=== PATIENT | male | born 1940 | race Caucasian/White ===

== ENCOUNTER 2016-11-29 12:46 | Inpatient (IN) | payer MEDICARE ==
[~2016-11-29] VITALS: Ht 182.9 cm; Wt 86.2 kg
--- NOTE | ~2016-11-29 | HEMODYNAMI ---
PATIENT:ZAN FRENCH MEDICAL RECORD: [id number] : 38 LOCATION:D.MS Lal7 ADMISSION DATE: 11/29/16 Generatedon:12/04/201613:06 Patient name: ZAN FRENCH Patient #: [id number] SSN: D OB: 1940 Date of study: 12/04/2016 Page: Of Hemodynamic Procedure Report Patient Data Patient Demographics Procedure consent was obtained First Name: ZAN Gender: Male Last Name: MANOLO : 1940 [facility] Initial: KASSANDRA Age: 76 year(s) Patient #: [id number] Race: Unknown Additional ID: [id number] Contact details [address]: [address] [place] [address] [place] State: [place] City: [place] Zip code: [address] Past Medical History Allergies Allergen Reaction Date Comments Reported Penicillins 09/12/2016 Admission Admission Data Admission Date: 11/29/2016 Admission Time: 12:46 Room #: D.2207 Weight (lbs.): 189 Weight (kg.): 85.73 Procedure Procedure Types Cath Procedure Peripheral Cath Diagnostic Procedure Cath Peripheral Abd/Extremity Extremities Bilat Lower Extremity Procedure Description Procedure Date Procedure Date: 12/04/2016 Procedure Start Time: 11:11 Procedure Staff Name Function Becky Suresh RT Resource Specialist Becky Suresh RT Monitor Margo Wilson RT Scrub Margo Medina RN Nurse Beto Keller MD Performing Physician Procedure Data Cath Procedure Fluoroscopy Diagnostic fluoroscopy Total fluoroscopy Time: 12 time: 12 min min Diagnostic fluoroscopy Total fluoroscopy dose: dose: 379.87 mGy 379.87 mGy Contrast Material Contrast Material Type Amount (ml) Isovue 300 118 Entry Location Entry Primary Successful Side Size Upsize Upsize Entry Closure Succes sful Closure Location (Fr) 1 (Fr) 2 (Fr) Remarks Device Remarks Femoral Right 5 Fr artery Femoral artery Diagnostic catheters Device Type Used For End Catheter Placement Merit ULTRA BOLUS FLUSH 5Fr 65CM catheter Merit Impress Olsen 5Fr 125CM catheter Procedure Medications Medication Administration Route Dosage Benadryl I.V. 50 mg Versed I.V. 1 mg Fentanyl I.V. 50 mcg Heparin Bolus I.V. 5000 units Versed I.V. 0.5 mg Hemodynamics Rest Heart Rate: 62 (bpm) Snapshots Pre Cath Intra NCS Post Cath Vital Signs Time Heart Resp SPO2 NIBP (mmHg) Rhythm Pain Sedation Rate (ipm) (%) Status Level (bpm) 10:53:09 73 23 99 162/96(145) NSR 0 (11) 10(A) , No pain 10:57:27 71 17 100 172/101(136) NSR 0 (11) 10(A) , No pain 11:01:48 69 18 99 174/105(151) NSR 0 (11) 10(A) , No pain 11:06:08 69 18 98 165/98(135) NSR 0 (11) 10(A) , No pain 11:10:28 70 18 98 170/100(145) NSR 0 (11) 10(A) , No pain 11:14:48 69 17 100 171/98(131) NSR 0 (11) 9(A) , No pain 11:19:10 69 16 100 168/110(139) NSR 0 (11) 9(A) , No pain 11:23:34 73 18 100 166/90(130) NSR 0 (11) 9(A) , No pain 11:27:52 70 20 100 169/98(145) NSR 0 (11) 9(A) , No pain 11:32:15 69 20 100 168/98(136) NSR 0 (11) 9(A) , No pain 11:36:37 69 19 100 169/95(131) NSR 0 (11) 9(A) , No pain 11:41:09 62 17 100 158/80(139) NSR 0 (11) 9(A) , No pain 11:45:28 71 20 100 173/99(138) NSR 0 (11) 9(A) , No pain 11:49:54 69 16 100 173/96(135) NSR 0 (11) 9(A) , No pain 11:54:18 70 18 99 171/105(141) NSR 0 (11) 9(A) , No pain 11:58:42 69 16 100 171/100(144) NSR 0 (11) 9(A) , No pain 12:02:54 70 16 100 161/103(147) NSR 0 (11) 9(A) , No pain 12:07:14 70 17 100 169/101(139) NSR 0 (11) 9(A) , No pain 12:11:38 74 16 100 179/105(144) NSR 0 (11) 9(A) , No pain 12:16:05 69 16 100 178/106(148) NSR 0 (11) 9(A) , No pain 12:21:16 69 17 100 165/100(143) NSR 0 (11) 9(A) , No pain 12:25:38 69 16 100 177/104(146) NSR 0 (11) 9(A) , No pain 12:30:06 70 18 100 180/101(144) NSR 0 (11) 9(A) , No pain 12:34:39 69 19 100 178/86(142) NSR 0 (11) 9(A) , No pain 12:39:07 69 16 100 185/107(151) NSR 0 (11) 9(A) , No pain 12:43:30 71 21 100 174/111(144) NSR 0 (11) 9(A) , No pain 12:47:58 69 16 100 178/107(133) NSR 0 (11) 9(A) , No pain 12:52:26 69 17 100 171/108(144) NSR 0 (11) 9(A) , No pain 12:57:25 69 18 Measuring NSR 0 (11) 9(A) , No pain 12:57:31 69 19 174/107(149) NSR 0 (11) 9(A) , No pain 13:01:53 71 18 170/91(134) NSR 0 (11) 9(A) , No pain Medications Time Medication Route Dose Verified Delivered Reason Notes Effective ness by by 11:00:05 Benadryl I.V. 50 mg Margo Margo Per Adam Adam physician RN RN 11:10:58 Versed I.V. 1 mg Margo Margo for Adam Adam sedation RN RN 11:11:04 Fentanyl I.V. 50 Margo Margo for mcg Adam Adam sedation RN RN 11:54:17 Heparin I.V. 5000 Margo Margo Per Bolus units [facility] Health[facility] physician RN RN 12:15:57 Versed I.V. 0.5 Margo Margo for mg Adam Adam sedation RN supervisor last model department Log Time Note 9:49:46 Patient Weight : 189 kg 9:51:51 Cook BENTSON 145cm guide wire opened to sterile field. 9:51:52 St Horacio 5FR Sheath opened to sterile field. 9:51:53 Micropuncture VSI 4FR kit opened to sterile field. 9:51:59 Use device set IR Diagnostic 9:52:01 Sterile Angiographic Pack opened to sterile field. 9:52:02 Bag Decanter opened to sterile field. 9:52:03 Acist Manifold opened to sterile field. 9:52:04 Acist Hand Control opened to sterile field. 9:52:05 Acist Syringe opened to sterile field. 9:56:07 TUBING, CONTRAST INJCTN HI PRES opened to sterile field. 9:56:21 Encore Inflation Device opened to sterile field. 9:56:36 - 10:52:35 Time tracking: Regular hours 10:52:41 Plan of Care:Hemodynamics will remain stable., Cardiac rhythm will remain stable., Comfort level will be maintained., Respiratory function will remain adequate., Patient/ family verbilizes understanding of procedure., Procedure tolerated without complication., Recovers from procedure without complications.. 10:52:51 Patient received from Med/Surg to IR Alert and oriented. Tansferred to table in Supine position. 10:52:53 Warm blankets applied, and loni hugger turned on for patient comfort. 10:52:55 Correct patient and procedure confirmed by team. 10:52:57 Signed procedure consent form obtained from patient. 10:53:00 ECG and BP/O2 sat monitors applied to patient. 10:53:02 Vital chart was started 10:53:06 Baseline sample Acquired. 10:53:18 Rhythm: paced 10:53:22 Full Disclosure recording started 10:53:29 Pre-procedure instructions explained to patient. 10:53:42 Family in waiting room. 10:53:48 Patient NPO since Midnight. 10:53:52 Is the patient allergic to Iodine/contrast media? No. 10:54:16 Is patient on blood thinner?Yes 10:54:33 ACC The patient was administered the following blood thiners within the last 24 hours: ACCPlavix, ACCLovenox 10:54:36 Patient diabetic? Yes. 10:54:54 Previous problem with sedation/anesthesia? No ? 10:54:56 Snore? Yes 10:54:58 Sleep apnea? Yes 10:55:00 Deviated septum? No 10:55:08 Opens mouth fully? Yes 10:55:10 Sticks out tongue? Yes 10:55:14 Airway obstruction? No ? 10:55:22 Dentures? No ? 10:55:25 Dentures? Yes ? 10:55:40 Pre procedure: right dorsailis pedis pulse Doppler 10:55:44 Pre procedure: left dorsailis pedis pulse Doppler 10:55:48 Pre procedure: right posterior tibial pulse Doppler 10:55:53 Pre procedure: left posterior tibial pulse Doppler 10:56:02 IV patent on arrival in right forearm with 0.9% NaCl at [facility]. 10:56:14 Right groin area was prepped with chlora-prep and draped in sterile fashion 10:56:26 Lab results completed and on chart. 10:56:31 Alarms reviewed by R. N. 10:56:33 Sharps counted by scrub and verified by R.N. 11:00:05 Benadryl 50 mg I.V. was given by Margo Medina RN; Per physician; 11:06:00 A Merit ULTRA BOLUS FLUSH 5Fr 65CM catheter was advanced over the wire and used for . 11:07:14 Physician arrived 11:09:40 Final Timeout: patient, procedure, and site verified with staff and physician. All members of the team are in agreement. 11:09:40 --------ALL STOP TIME OUT------ 11:09:47 Physical assessment completed. ASA score P 3 - A patient with severe systemic disease as per Beto Keller MD. 11:09:53 Sedation plan: IV Moderate Sedation Versed, Fentanyl 11:10:04 Procedure started. 11:10:58 Versed 1 mg I.V. was given by Margo Medina RN; for sedation; 11:11:04 Fentanyl 50 mcg I.V. was given by Margo Medina RN; for sedation; 11:11:32 Local anesthetic to right femoral artery with Lidocaine 1% by Beto Keller MD.INITIAL ACCESS ONLY 11:11:35 Arterial access obtained using ultrasound guidance. 11:11:51 A 5 Fr sheath was inserted into the Right Femoral artery 11:21:27 [place] Saberr Amplatz Super Stiff 75CM guide wire opened to sterile field. 11:21:28 Terumo TORQUE DEVICE PLASTIC .038 opened to sterile field. 11:21:49 Terumo ANGLE 180L glide wire opened to sterile field. 11:21:50 Terumo 5FR ANGLED 65CM glide catheter opened to sterile field. 11:42:52 Terumo 6Fr [place] Destination Sheath opened to sterile field. 11:43:10 Terumo ANGLE 260L glide wire opened to sterile field. 11:43:11 Cook MORAES 260 guide wire opened to sterile field. 11:43:12 Terumo 5FR ANGLED 100CM glide catheter opened to sterile field. 11:48:26 CXI SUPPORT .035 135 CM STR catheter opened to sterile field. 11:54:17 Heparin Bolus 5000 units I.V. was given by Margo Medina RN; Per physician; 11:55:01 CSI [place] Floppy 300cm opened to sterile field. 12:00:49 Inflation number: 1 A Saber 3.0 X 4 X 150 balloon was prepped and advanced across the Undefined1, then inflated to 14 SHEKHAR for 0:10 (min:sec). 12:10:36 A Lalitha Escamilla Olsen 5Fr 125CM catheter was advanced over the wire and used for . 12:15:57 Versed 0.5 mg I.V. was given by Margo Medina RN; for sedation; 12:30:12 Inflation number: 2 A IN.PACT Admiral 4.0 x 60 x 135 DCB Balloon was prepped and advanced across the Undefined1, then inflated to 5 SHEKHAR for 2:46 (min:sec). 12:37:40 St Horacio 6Fr sheath opened to sterile field. 12:40:27 A sheath was inserted into the Femoral artery 12:41:12 Procedure ended.(Physican Out) 12:41:17 Fluoroscopy time 12.00 minutes. 12:41:31 Fluoroscopy dose: 379.87 mGy 12:41:31 Flurop Dose total: 379.87 12:41:39 Contrast amount:Isovue 300 118ml. 12:41:41 Sharps counted by scrub and verified by R.N. 13:01:03 Femstop placed over the right femoral artery at 1300 mmHg. Hemostasis achieved. 13:02:14 Procedure and supply charges have been captured, reviewed, submitted an d are correct. 13:02:57 Vital chart was stopped 13:03:01 Full Disclosure recording stopped Intervention Summary Intervention Notes Time ActionType Lesion and Equipment Action# Pressure Duration Attributes Used 12:00:49 Inflate Undefined1 Saber 3.0 1 14 00:10 balloon X 4 X 150 balloon 12:30:12 Inflate Undefined1 IN.PACT 2 5 02:46 balloon Admiral 4.0 x 80 x 135 DCB Balloon Device Usage Item Name Manufacture Quantity Catalog Number Hospital Part Current M inimal Lot# / Charge Number Stock Stock Serial# Code [facility] 1 [id number] [id number] [id number] wire [address] Horacio [address]FR St Horacio 1 [id number] 424369 660273 5 [id number] Sheath Micropuncture VSI VASCULAR 1 [id number] 085194 366526 5 VSI 4FR kit SOLUTIONS Sterile Cardinal 1 [id number] 941317 497037 5 Angiographic Health Pack Bag Decanter Microtek 1 2001S 383696 58322 502772 5 Medical Inc. Acist Acist Medical 1 69643 442183 212057 026499 5 Manifold Systems Inc Acist Hand Acist Medical 1 65067 665809 883737 818539 5 Control Systems Inc Acist Syringe Acist Medical 1 41827 916480 730666 499631 2 0 Systems Inc TUBING, Aurality 1 [id number] 666113 856877 378309 5 CONTRAST INJCTN HI PRES Encore [place] 1 [id number] 449446 111027 755699 5 Inflation Scientific Device SquareMarket ULTRA [facility] 1 [id number] 411054 049009 5 BOLUS FLUSH 5Fr 65CM catheter [place] Sci [place] 1 [id number] 113461 350481 034812 5 Amplatz Super Scientific Stiff 75CM guide wire Terumo TORQUE [place] 1 TD01 668617 112165 984172 5 DEVICE Scientific PLASTIC .038 Terumo ANGLE Terumo 1 [id number] 289478 620413 5 180L glide wire Terumo 5FR Terumo 1 CG507 228320 612890 5 ANGLED 65CM glide catheter Terumo 6Fr Terumo 1 RSR01 291953 49646 295164 5 [place] Destination Sheath Terumo ANGLE Terumo 1 [id number] 124886 213995 5 260L glide wire [facility] 1 X86739 701020 814216 5 8376037 260 guide wire Terumo 5FR Terumo 1 CG508 555188 776654 4 ANGLED 100CM glide catheter CXI SUPPORT [facility] 1 U61270 637700 441447 5 .035 135 CM STR catheter CSI [place] Cardiovascular 1 [id number] 616786 774673 1 Floppy 300cm systems Saber 3.0 X 4 Cardinal 1 [id number] 584614 036958 5 X 150 balloon Health Merit [facility] 1 [id number] 997142 468345 831835 5 Olsen 5Fr 125CM catheter IN.PACT Medtronic 1 [id number] 470590 559617 526085 5 Admiral 4.0 x 80 x [address] Horacio [address] St Horacio 1 573105 639739 065917 5 [id number] sheath Signature Audit Liguori Stage Time Signature Unsigned Intra-Procedure 12/04/2016 Becky Suresh 1:02:44 PM RT(R) Signatures Monitor : Becky Suresh RT Signature : Date : Time : [facility] [address] [facility] [place] [address]
[~2016-11-29 12:46] MED LIST: ALDACTONE25 MG PO; BAYER CHEWABLE81 MG PO; CLARITIN 10 MG10 MG PO; CLEOCIN HCL300 MG PO; COREG25 MG PO; COUMADIN5 MG PO; FLAGYL500 MG PO; FLOMAX0.4 MG PO; HUMALOG 30100 UNITS/ SC; HYDROCODON-ACE1 EAC7 PO; ISOSORBIDE MONO30 M1 PO; LASIX40 MG PO; LASIX80 MG PO; LEVAQUIN250 MG PO; LEVAQUIN500 MG PO; LEVEMIR100 U/M1 SC; LIPITOR20 MG PO; LIPITOR40 MG PO; LYRICA75 MG PO; MIDODRINE HCL2.5 MG PO; MUCOMYST 2800 MG/4 M PO; NOVOLOG MIX 70/10 ML; NOVOLOG100 U/M1 SQ; PLAVIX75 MG PO; RANEXA500 MG PO; VANCOMYCIN 1 GM/1 G1 IV; ZETIA10 MG PO; Zaroxolyn PO
--- NOTE | 2016-11-29 13:44 | NUR ---
RECIEVED TO ROOM [address] PAINTING OFFICE PT AWAKE AND ALERT ORINETED X 3 LUNGS CLEAR BIALTERALLY HAS NOTED GANGRENE TO LEFT FOOT UNDER 4TH TOENAIL AND SPOTS TO 3RD TOE COMPLAINS OF PAIN TO LLE NOTED TO HAVE AN ODOR ORINETED TO ROOM AND STAFF CALL LIGHT IN REACH SIDE RAILS UP X 2 AND BEED TO LOW POSITION.
[2016-11-29] MEDS ORDERED: LIPITOR40 MG PO (14:05)
[2016-11-29] MEDS ORDERED: LIPITOR80 MG PO (14:06)
[2016-11-29 14:09] VITALS: BP 185/87
[2016-11-29] MEDS ORDERED: NOVOLOG100 U/M1 SQ (14:19)
[2016-11-29 14:36] LABS: BASOPHILS 0.3 % (0.0-2.0); EOSINOPHILS 0.4 % (0-7); HEMATOCRIT 41.8 % (42.0-54.0); HEMOGLOBIN 12.9 g/dL (13.5-17.5); IMMATURE GRANULOCYTES 0.3 % (0-5); LYMPHOCYTES 14.5 % (15-50); MCH 25.6 pg (26.0-34.0); MCHC 30.9 g/dL (31.0-37.0); MCV 83.1 fL (80.0-100.0); MEAN PLATELET VOLUME 11.9 fL (7.4-10.4); MONOCYTES 7.6 % (2-11); NEUTROPHILS 76.9 % (40-80); RBC 5.03 10x6/uL (4.20-6.10); WBC 7.8 10x3/uL (4.8-10.8)
[2016-11-29 14:38] LABS: PLATELET COUNT 155 10x3/uL (130-400)
[2016-11-29 14:45] LABS: APTT 29.5 SECONDS (22.8-39.4); INR 1.28 (0.85-1.17); PROTIME 15.8 SECONDS (11.6-15.0)
[2016-11-29 14:49] LABS: ALBUMIN 2.7 g/dL (3.4-5.0); ANION GAP 11.6 mmol/L (8-16); BILIRUBIN - TOTAL 0.67 mg/dL (0.2-1.3); CALCIUM 8.8 mg/dL (8.5-10.1); CARBON DIOXIDE 29.9 mmol/L (21.0-32.0); CREATININE - SERUM 1.5 mg/dL (0.6-1.3); POTASSIUM - SERUM 4.5 mmol/L (3.5-5.1); PROTEIN - SERUM 7.2 g/dL (6.4-8.2)
[2016-11-29 15:35] VITALS: BP 178/101
--- NOTE | 2016-11-29 16:11 | NUR ---
Patient Name: ZAN FRENCH Admission Status: Elective Accout number: [id number] Admission Date: 11-29-2016 : 1940 Admission Diagnosis: Attending: ALIDA Current LOS: 1 Anticipated DC Date: 12-02-2016 Planned Disposition: Home Primary Insurance: [employer] MEDICARE PPO or HMO Discharge Planning Comments: CM MET WITH PATIENT REGARDING D/C NEEDS AND PLANS. PATIENT STATED HE LIVES WITH HIS (ARVIN) AND GRANDCHILDREN. THERE ARE 3 STEPS W/RAILS TO ENTER HOME AND NO STAIRS ONCE INSIDE. PATIENTS WILL PICK HIM UP AT DISCHARGE. PATIENT STATED HE IS INDEPENDENT WITH HIS CARE AND HAS ONLY A WALKER AND CANE AT HOME IF NEEDED. PATIENTS PCP IS DR. RENO IN [place] AND [facility] [place]. PATIENT STATED HE DOES NOT THINK HE WILL NEED HH AT DISCHARGE. CM WILL CONTINUE TO FOLLOW PATIENT WITH D/C NEEDS AND PLANS. PCP DR. RENO IN [facility] IN [place]- [phone] ARVIN () [phone] Motorman/Woman: Tea Cummings Is the patient Alert and Oriented? Yes 0 * How many steps to enter\exit or inside your home? 3 W/RAILS 0 * PCP IN [place] 0 * Pharmacy [facility] IN [place] 0 * Preadmission Environment Home with Family 0 * ADLs Independent 0 * Equipment Cane Walker 0 * List name and contact numbers for known caregivers / representatives who currently or will assist patient after discharge: ARVIN (SPOUSE) [phone] 0 * Community resources currently utilized None 0 * Additional services required to return to the preadmission environment? Yes 0 * Can the patient safely return to the preadmission environment? Yes 0 * Has this patient been hospitalized within the prior 30 days at any hospital? No 0 Grand Total: 0
[2016-11-29 17:10] VITALS: BP 185/87; BMI 25.8
--- NOTE | 2016-11-29 17:17 | NUR ---
PT LYING IN BED WATCHING TV NO COMPLAINTS VOICED ALL NEEDS MET PER STAFF AT THIS TIME AWAITING SUPPER MEAL.
[2016-11-29 19:00] VITALS: BP 167/92
--- NOTE | 2016-11-29 19:00 | NUR ---
PATIENT SLEEPING ON LEFT SIDE WITH NO DISTRESS NOTED. HOB 20 DEGREES. RR EVEN AND UNLABORED. IV TO RIGHT FA PATENT WITH NO REDNESS OR SWELLING. SRX2. BED LOW. CALL LIGHT WITHIN REACH.
--- NOTE | 2016-11-29 22:00 | NUR ---
ASSESSMENT COMPLETE. NIGHTTIME MEDS GIVEN. 6 UNITS HUMULIN GIVEN FOR BS OF 264. NO OTHER NEEDS AT THIS TIME.
[2016-11-30] VITALS: BP 143/83
[2016-11-30 04:00] VITALS: BP 115/80
[2016-11-30 05:21] LABS: BASOPHILS 0.3 % (0.0-2.0); HEMOGLOBIN 11.6 g/dL (13.5-17.5); IMMATURE GRANULOCYTES 0.1 % (0-5); LYMPHOCYTES 21.4 % (15-50); MCH 25.1 pg (26.0-34.0); MCHC 30.5 g/dL (31.0-37.0); MCV 82.3 fL (80.0-100.0); MONOCYTES 7.4 % (2-11); NEUTROPHILS 69.8 % (40-80); PLATELET COUNT 149 10x3/uL (130-400); RBC 4.62 10x6/uL (4.20-6.10); RDW 16.8 % (11.5-14.5); WBC 6.9 10x3/uL (4.8-10.8)
[2016-11-30 05:51] LABS: BILIRUBIN - TOTAL 0.8 mg/dL (0.2-1.3); CALCIUM 7.7 mg/dL (8.5-10.1); CARBON DIOXIDE 30.2 mmol/L (21.0-32.0); CREATININE - SERUM 1.4 mg/dL (0.6-1.3); MAGNESIUM - SERUM 1.7 mg/dL (1.8-2.4); PHOSPHOROUS 2.5 mg/dL (2.5-4.9); PROTEIN - SERUM 5.5 g/dL (6.4-8.2)
[2016-11-30 05:53] LABS: ANION GAP 10.3 mmol/L (8-16); POTASSIUM - SERUM 3.5 mmol/L (3.5-5.1)
--- NOTE | 2016-11-30 07:15 | NUR ---
SLEEPING QUIETLY RESP EVEN AND UNLABORED AT THIS TIME.
[2016-11-30 07:38] VITALS: BP 167/83
--- NOTE | 2016-11-30 08:07 | NUR ---
SCD'S PLACED ON DRAGAN LEGS.
--- NOTE | 2016-11-30 09:30 | NUR ---
CONT NPO FOR TEST AT PRESENT.
--- NOTE | 2016-11-30 11:00 | NUR ---
FOB UP ORDERED SCD IN PLACE WOUND CULTER TO LAB.
[2016-11-30 11:47] VITALS: BP 140/72
--- NOTE | 2016-11-30 12:00 | NUR ---
LUNCH SERVED POST X-RAYS AT PRESENT.
[2016-11-30 13:19] VITALS: Ht 182.9 cm; Wt 86.2 kg
--- NOTE | 2016-11-30 15:00 | NUR ---
TAKINGS LIQS WELL AT PRESENT N/C VOICED.
[2016-11-30 15:34] VITALS: BP 137/76
--- NOTE | 2016-11-30 17:00 | NUR ---
WATCHING TV QUIETLY AT PRESENT N/C VOICED.
--- NOTE | 2016-11-30 18:30 | NUR ---
SLEEPING QUIETLY AT PRESENT DENIES ANY PRESENT.
[2016-11-30 20:00] VITALS: BP 139/80
[2016-12-01] VITALS: BP 136/84
[2016-12-01 04:00] VITALS: BP 156/84
--- NOTE | 2016-12-01 04:13 | NUR ---
PT IS ASLEEP WITH EASY RESPIRATIONS AND NO DISTRESS NOTED. THE BED IS LOW, RAILS UP X'S 2 WITH THE CALL LIGHT AT HAND.
[2016-12-01 05:12] LABS: BASOPHILS 0.5 % (0.0-2.0); EOSINOPHILS 1.3 % (0-7); HEMATOCRIT 38.6 % (42.0-54.0); HEMOGLOBIN 11.8 g/dL (13.5-17.5); IMMATURE GRANULOCYTES 0.2 % (0-5); LYMPHOCYTES 20.8 % (15-50); MCH 25.1 pg (26.0-34.0); MCHC 30.6 g/dL (31.0-37.0); MCV 82.1 fL (80.0-100.0); MEAN PLATELET VOLUME 11.7 fL (7.4-10.4); MONOCYTES 8.3 % (2-11); NEUTROPHILS 68.9 % (40-80); PLATELET COUNT 148 10x3/uL (130-400); RDW 17.1 % (11.5-14.5); WBC 6.3 10x3/uL (4.8-10.8)
[2016-12-01 05:23] LABS: % SATURATION 10 % (15-55); IRON 20 ug/dl (35-150); TOTAL IRON BIND CAPACITY 184 ug/dl (260-445); UNSAT IRON BIND CAPACITY 164 ug/dl (150-375)
[2016-12-01 05:44] LABS: ALBUMIN 2.1 g/dL (3.4-5.0); ANION GAP 8.5 mmol/L (8-16); BILIRUBIN - TOTAL 0.54 mg/dL (0.2-1.3); CALCIUM 8.4 mg/dL (8.5-10.1); CARBON DIOXIDE 31.4 mmol/L (21.0-32.0); CREATININE - SERUM 1.5 mg/dL (0.6-1.3); POTASSIUM - SERUM 3.9 mmol/L (3.5-5.1); PROTEIN - SERUM 6.4 g/dL (6.4-8.2)
--- NOTE | 2016-12-01 07:30 | NUR ---
RECIEVED PT DURING WALKING ROUNDS. PT RESTING COMFORTABLY IN BED WITH NO COMPLAINTS OF PAIN OR DISCOMFORT AT THIS TIME. ASSESSMENT DONE PER FLOWSHEET. BED IN LOW POSITION AND CALL LIGHT WITHIN REACH. WILL CONTINUE TO MONITOR.
[2016-12-01 08:25] VITALS: BP 151/92
--- NOTE | 2016-12-01 09:50 | NUR ---
PT STANDING UP AT SINK SHAVING FACE AT THIS TIME. STOOD BY TO ASSIST IF NEEDED. PT BACK TO BED. BED IN LOW POSITION AND CALL LIGHT WITHIN REACH. WILL CONTINUE TO MONITOR.
--- NOTE | 2016-12-01 11:55 | NUR ---
IV SITE IN THE RIGHT FOREARM RED ADN SWOLLEN. STOPPED OV FLUIDS AND RESTARTED FLUIDS TO RIGHT AC. DC'D RIGHT FOREARM IV. WILL CONTINUE TO MONITOR.
--- NOTE | 2016-12-01 12:08 | NUR ---
AWAKE AND ALERT. NO C/O AT THIS TIME. LEFT FOOT IS DRAINING SOME SEROUS FLUID. DENIES NEEDS.
[2016-12-01 12:48] VITALS: BP 147/86
--- NOTE | 2016-12-01 13:38 | HP ---
PATIENT: ZAN FRENCH MEDICAL RECORD: [id number] ACCOUNT: [id number] LOCATION:D.[facility] : 39 ADMISSION DATE: 11/29/16 HISTORY AND PHYSICAL EXAMINATION NameZAN FRENCH (76yo, M) ID# [id number]. Date/Time11/29/2016 10:66UIDVS1939Service Dept.NP_[facility] ClinicProviderEDGARRISON LOAIZA MDInsuranceMed Primary: [employer] (MEDICARE REPLACEMENT PPO) Insurance # : [id number] Policy/Group # : [id number] Referring Provider Name : ALEXIS RENO Employer Name : [employer] Prescription: [employer] - This member could not be found in the payer's files. Please verify coverage and all member demographic information. Chief Complaint Followup: Claudication Followup: Atrial fibrillation Followup: Intermittent claudication s/p PPM placement 03/11/12 s/p Right arteriogram with intervention Patient's Care Team Referring Provider (): ALEXIS RENO: [address] [place] [address], , Referring Provider: KAROL GUILLEN: [address] [place] [address], , Patient's Pharmacies [facility] (ERX): [address] [facility] [address], , Vitals BP:130/70 sitting R arm 11/29/2016 11:40 amHR:80R/R 11/29/2016 11:41 amHt:6 ft 11/29/2016 11:37 amWt:190 lbs 11/29/2016 11:41 amBMI:25.8 11/29/2016 11:41 amAllergies Allergies not reviewed (last reviewed 02/02/2016) PENICILLINSMedications Medications not reviewed (last reviewed 02/02/2016) atorvastatin 40 mg mvoada05/16/15 filledCaremarkcarvedilol 25 mg wtcpii29/04/15 filledCaremarkclopidogrel 75 mg tablet Take 1 tablet(s) every day by oral route.08/15/15 filledCaremarkfurosemide 80 mg mlopjv82/26/15 filledCaremarkImdur 60 mg tablet,extended release Take 1 tablet(s) every day by oral route.06/07/15 enteredCindy Brownisosorbide mononitrate ER 30 mg tablet,extended release 24 hr06/30/15 filledCaremarkLevemir FlexTouch 100 unit/mL (3 mL) subcutaneous insulin pen09/15/15 filledCaremarklevoFLOXacin 250 mg tablet Take 1 tablet(s) every day by oral route for 24 days.11/23/15 prescribedAura Brumfield MDLyrica 75 mg eegykot01/13/15 filledCaremarkmetroNIDAZOLE 500 mg tablet Take 1 tablet(s) every 8 hours by oral route for 24 days.11/23/15 prescribedAura Brumfield MDNovoLOG Flexpen 100 unit/mL mdkmfttknniw16/30/15 filledCaremarkRanexa 500 mg tablet,extended jjgvqny88/10/15 filledCaremarkspironolactone 25 mg xkqorl10/13/15 filledCaremarkwarfarin 5 mg /29/15 filledCaremarkZetia 10 mg brrxja11/29/15 filledCaremarkVaccines Vaccines not reviewed (last reviewed 02/02/2016) Vaccine TypeDateAmt.RouteSiteLot #Mfr.Exp. HISTORY AND PHYSICAL [id number] ZAN FRENCH DateDate on VISVIS GivenVaccinatorPneumococcalpneumococcal polysaccharide QNO0615/2015Problems Problems not reviewed (last reviewed 02/02/2016) Diabetes mellitus Conduction disorder of the heart Atrial fibrillation Claudication Intermittent claudication Chronic renal impairment Ischemic leg ulcer, Right Osteomyelitis Family History Family History not reviewed (last reviewed 02/02/2016) Maternal Grandmother- Well adultMaternal Grandfather- Well adultPaternal Grandmother- Heart diseasePaternal Grandfather- Well adultFather- Heart disease - Diabetes mellitusMother- Heart disease - Diabetes mellitusBrother- Heart disease - Diabetes mellitusBrother- Heart disease - Diabetes mellitusSister- Diabetes mellitus - cancerSocial History Social History not reviewed (last reviewed 02/02/2016) Cardiology and General Family history of heart disease?: Y Smoking Status: Former smoker Smoker (2 PPW) (Notes: quit in 1972) Exercise level: Occasional Alcohol intake: None Marital status: Is blood transfusion acceptable in an emergency?: Y Education: 2 Year College Caffeine intake: Moderate Chewing tobacco: none TB Exposure: N Surgical History Surgical History not reviewed (last reviewed 02/02/2016) Other - 2011 - eyes Anesth pacemaker insertion - 2011 Other - 2003 - stints placed in heart Anesth repair of hernia - 1959 Past Medical History Past Medical History not reviewed (last reviewed 02/02/2016) Diabetes: Y High Blood Pressure: Y Irregular heart beat: Y Kidney Disease: Y Pain in legs when walking: Y Peripheral Vascular Disease (PVD): Y Notes: diabetes, coronary artery disease, pacemaker, heart attack, leg/foot ulcers Documents for Discussion N/A Screening HISTORY AND PHYSICAL [id number] ZAN FRENCH None recorded. HPI Peripheral Vascular Disease Reported by patient. Location: foot ("Dr. Serrano saw me today. said Right foot is healing. and Left foot has new sore on 3 toes.") Severity: mild Notes: "left leg hurts in calf at rest" ROS Patient reports exercise intolerance but reports no fever, no night sweats, no significant weight gain, and no significant weight loss. He reports dry eyes and vision change but reports no irritation. He reports shortness of breath when walking but reports no chest pain, no arm pain on exertion, no shortness of breath when lying down, no palpitations, and no known heart murmur. He reports shortness of breath but reports no cough, no wheezing, and no coughing up blood. He reports muscle aches, muscle weakness, arthralgias/joint pain, and swelling in the extremities but reports no back pain. He reports no diffi culty hearing and no ear pain. He reports no frequent nosebleeds and no nose/sinus problems. He reports no sore throat, no bleeding gums, no snoring, no dry mouth, no mouth ulcers, no oral abnormalities, and no teeth problems. He reports no abdominal pain , no vomiting, normal appetite, no diarrhea, not vomiting blood, no nausea, and no constipation. He reports no incontinence, no difficulty urinating, no hematuria, and no increased frequency. He reports no abnormal mole, no jaundice, and no rashes. He repo r ts no loss of consciousness, no weakness, no numbness, no seizures, no dizziness, and no headaches. He reports no depression, no sleep disturbances, feeling safe in relationship, and no alcohol abuse. He reports no fatigue. He reports no swollen glands an d no bruising. He reports no runny nose, no sinus pressure, no itching, no hives, and no frequent sneezing. ROS as noted in the HPI Physical Exam Patient is a 76-year-old male. Post Operative Exam: General Appearance: swelling, tenderness, wound drainage (left foot fifth metatarsal area), active motion limited, and neurovascular not intact and no warmth. Gait And Stance wide-based and irregular gait and stance. Digits and Nails normal nails, no cyanosis, and abnormal nails. Joints, Bones, and Muscles limited ROM and abnormal strength. Constitutional: General Appearance healthy-appearing, well developed, and overweight. Level of Distress NAD. Ambulation ambulation with cane. Cardiovascular: Apical Impulse not displaced or no thrill. Heart Auscultation norm al s1 and s2; no murmurs, rubs, or gallops; and RRR. Arterial Pulses no abdominal aorta bruits, femoral bruits, or popliteal bruits; femoral diminished (bilateral), popliteal not palpable (bilaterally), and dorsalis pedis not palpable (bilateral); and 2+ bilateral, carotid 2+ bilateral, and femoral 2+ bilateral. Edema no varicosities and edema. Lungs: Repiratory Effort no dyspnea. Percussion no hyperresonance or dullness or flatness. Auscultation no wheezing, rhonchi, or rales / crackles and breathing sounds normal, good air movement, and CTA except as noted. Abdomen: Bowl Sounds normal. Inspection and Palpation no tenderness, guarding, masses, or rebound tenderness and soft and non-distended. Liver non-tender and no hepatomegaly. Spleen non-tender and no splenomegaly. Hernia none palpable. HISTORY AND PHYSICAL [id number] ZAN FRENCH Neurologic: Cranial Nerves grossly intact. Reflexes DTRs 2+ bilaterally throughout. Sensation abnormal. Lymph Nodes: Lymph Nodes no cervical LAD, supraclavicular LAD, axillary LAD, or inguinal LAD. Eyes: Lids and Conjunctivae no discharge or pallor and non-injected. Pupils PERRLA. Cornea grossly intact. EOM EOMI. Lens clear. Sclerae non-icteric. Neck: Neck no masses, enlarged lymph nodes, or carotid bruits and supple and trachea midline. Thyroid no enlargement or nodules and non-tender. Skin: Inspection and Palpation no rash, lesions, ulcers, jaundice, or abnormal nevi. 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 Claudication I73.9: Peripheral vascular disease, unspecified 3. Atrial fibrillation I48.91: Unspecified atrial fibrillation ATRIAL FIBRILLATION: CARE INSTRUCTIONS 4. Intermittent claudication I73.9: Peripheral vascular disease, unspecified Discussion Notes we'll admit gangrene left foot Gen. surgery and medical consult with IV antibiotics and debridement et cetra. Return to Office to see Yehuda Loaiza MD at [facility] on or around 11/29/2016 Encounter Sign-Off Encounter signed-off by Yehuda Loaiza MD, 11/29/2016. YEHUDA LOAIZA MD at 1338 CC: [id number] DICTATION DATE: 11/29/16 1400 CELLOPHANE WORKER: MAAME 11/29/16 1423 ADM IN [facility] [address] [place] [address]
--- NOTE | 2016-12-01 15:54 | NUR ---
IV PLACED IN THE RIGHT FOREARM PER PT REQUEST DUE TO PREVIOUS IV PLACEMENT. 20G FLUSHED WITH 10ML OF NS AND SECURED WITH OP-SITE AND TAPE. BED IN LOW POSITION AND CALL LIGHT WITHIN REACH. WILL CONTINUE TO MONITOR.
[2016-12-01 16:26] VITALS: BP 146/89
[2016-12-01 20:00] VITALS: BP 152/86
--- NOTE | 2016-12-01 20:01 | NUR ---
PT SEEN AT 1930 AND ASSESSED. NO COMPLAINTS AT PRESENT. BLACKENED AREA TO TO LEFT FOOT PAD IS BETTER THAN YESTERDAY. SCDS IN PLACE BILAT. FOOT OF BED ELEVATED. CALL LIGHT IN PLACE
[2016-12-02] VITALS: BP 148/86
--- NOTE | 2016-12-02 00:48 | NUR ---
RESTING WELL AT THIS TIME WITH NO C/O NOTED OR VOICED. C/L IN REACH AT BEDSIDE.
[2016-12-02 04:00] VITALS: BP 154/86
[2016-12-02 06:22] LABS: BASOPHILS 0.2 % (0.0-2.0); EOSINOPHILS 1.3 % (0-7); HEMOGLOBIN 11.9 g/dL (13.5-17.5); LYMPHOCYTES 22.7 % (15-50); MCH 25.1 pg (26.0-34.0); MCHC 30.5 g/dL (31.0-37.0); MCV 82.1 fL (80.0-100.0); MEAN PLATELET VOLUME 11.7 fL (7.4-10.4); MONOCYTES 9.5 % (2-11); NEUTROPHILS 66.3 % (40-80); PLATELET COUNT 150 10x3/uL (130-400); RBC 4.75 10x6/uL (4.20-6.10); WBC 5.5 10x3/uL (4.8-10.8)
[2016-12-02 06:44] LABS: ALBUMIN 2.1 g/dL (3.4-5.0); ANION GAP 6.6 mmol/L (8-16); BILIRUBIN - TOTAL 0.48 mg/dL (0.2-1.3); CARBON DIOXIDE 29.9 mmol/L (21.0-32.0); CREATININE - SERUM 1.6 mg/dL (0.6-1.3); POTASSIUM - SERUM 3.5 mmol/L (3.5-5.1); PROTEIN - SERUM 6.4 g/dL (6.4-8.2)
--- NOTE | 2016-12-02 07:30 | NUR ---
PATIENT RECEIVED IN MID MCALLISTER POSITION RESTING QUIETLY.NO SIGNS OF DISTRESS NOTED. DENIES PAIN AND OTHER NEEDS. SIDE RAILS UP X2. BED IN LOW POSITION. CALL LIGHT IN REACH.
[2016-12-02 07:56] VITALS: BP 152/82
--- NOTE | 2016-12-02 09:00 | NUR ---
PATIENT ALERT IN BED. NO SIGNS OF DISTRESS NOTED. SCHEDULED MEDICATION ADMINISTERED. DENIES NEEDS. SIDE RAILS UPX 2. BED IN LOW POSITION. CALL LIGHT IN REACH.
--- NOTE | 2016-12-02 11:23 | NUR ---
PATIENT SITTING UP ON SIDE OF BED ALERT. NO SIGNS OF DISTRESS NOTED. ACCU CHECK 141. NO INSULIN PER SLIDING SCALE. DENIES NEEDS. SIDE RAILS UP X2. BED IN LOW POSITION. CALL LIGHT IN REACH.
[2016-12-02 12:55] LABS: CREATININE - URINE 146.7 mg/dL (30-125)
[2016-12-02 12:58] LABS: APPEARANCE CLEAR (CLEAR); COLOR DK YELLOW (YELLOW); LEUKOCYTE ESTERASE NEGATIVE (NEGATIVE); NITRITE NEGATIVE (NEGATIVE); PROTEIN TRACE mg/dL (NEGATIVE); PROTEIN - URINE 379.7 mg/dL (0.0-11.9); SPECIFIC GRAVITY 1.025 (1.005-1.020)
[2016-12-02 12:59] LABS: BILIRUBIN NEGATIVE (NEGATIVE); GLUCOSE 500 mg/dL (NEGATIVE); KETONE SMALL mg/dL (NEGATIVE); RED CELLS - URINE 0-5 /hpf (0-5); UROBILINOGEN NORMAL (NORMAL); WHITE CELLS - URINE 0-5 /hpf (0-5)
[2016-12-02 13:02] VITALS: BP 163/92
--- NOTE | 2016-12-02 14:00 | NUR ---
PATIENT IN LOW MCALLISTER POSITION RESTING WITH EYES CLOSED. RESPIRATIONS EVEN AND UNLABORED. LEFT LEG ELEVATED ON PILLOW. SIDE RAILS UP X2. BED IN LOW POSITION. CALL LIGHT IN REACH.
[2016-12-02 15:56] VITALS: BP 169/102
--- NOTE | 2016-12-02 19:20 | NUR ---
REC'D IN BED AWAKE AND ALERT. RESP EVEN AND UNLABORED WITH NO DISTRESS NOTED. CAN MAKE NEEDS AND WANTS. DENIES ANY PAIN OR DISCOMFORT AT THIS TIME. ASSESSMENT COMPLETED. C/L IN REACH AT BESIDE.
[2016-12-02 21:00] VITALS: BP 156/84
[2016-12-03 01:00] VITALS: BP 169/100
[2016-12-03 04:00] VITALS: BP 155/92
--- NOTE | 2016-12-03 05:56 | NUR ---
PT IN ROOM WITH NO NEEDS. LAB IN ROOM TO DRAW BLOOD. SCD'S OFF AT THIS TIME. RIGHT ARM AND RIGHT AC IV'S PATENT AND SALINE LOC AT THIS TIME. SIDE RAILS ARE UP X 2. BED IS LOW. CALL LIGHT IS IN REACH.
[2016-12-03 06:53] LABS: BASOPHILS 0.5 % (0.0-2.0); EOSINOPHILS 1.4 % (0-7); HEMATOCRIT 39.8 % (42.0-54.0); HEMOGLOBIN 12.3 g/dL (13.5-17.5); IMMATURE GRANULOCYTES 0.3 % (0-5); MCH 25.4 pg (26.0-34.0); MCHC 30.9 g/dL (31.0-37.0); MCV 82.1 fL (80.0-100.0); MEAN PLATELET VOLUME 11.4 fL (7.4-10.4); MONOCYTES 7.4 % (2-11); NEUTROPHILS 65.4 % (40-80); PLATELET COUNT 167 10x3/uL (130-400); RBC 4.85 10x6/uL (4.20-6.10); RDW 16.8 % (11.5-14.5); WBC 5.9 10x3/uL (4.8-10.8)
--- NOTE | 2016-12-03 07:10 | NUR ---
PATIENT RECEIVED IN LOW MCALLISTER POSITION. RESPIRATIONS EVEN AND UNLABORED. SIDE RAILS UP X2. BED IN LOW POSITION. CALL LIGHT IN REACH. DENIES NEEDS.
[2016-12-03 07:27] LABS: ALBUMIN 2.1 g/dL (3.4-5.0); BILIRUBIN - TOTAL 0.5 mg/dL (0.2-1.3); CARBON DIOXIDE 32.4 mmol/L (21.0-32.0); CREATININE - SERUM 1.5 mg/dL (0.6-1.3); PROTEIN - SERUM 6.5 g/dL (6.4-8.2)
[2016-12-03 07:29] LABS: ANION GAP 8.7 mmol/L (8-16); POTASSIUM - SERUM 4.1 mmol/L (3.5-5.1)
--- NOTE | 2016-12-03 08:25 | NUR ---
SITTING UP IN CHAIR AT BEDSIDE EATING BREAKFAST. TOLERATING WELL. SCHEDULED MEDICATION ADMINISTERED. DENIES NEEDS. SIDE RAILS UP X2. BED IN LOW POSITION. CALL LIGHT IN REACH.
[2016-12-03 08:36] VITALS: BP 162/93
--- NOTE | 2016-12-03 11:15 | NUR ---
ACCU CHECK 195. INSULIN PER SLIDING SCALE. NO FURTHER NEEDS VOICED. SIDE RAILS UP X2. BED IN LOW POSITION. CALL LIGHT IN REACH.
[2016-12-03 12:28] VITALS: BP 156/81
--- NOTE | 2016-12-03 14:05 | NUR ---
PATIENT ALERT IN BED. NO SIGNS OF DISTRESS NOTED. SCHEDULED MEDICATION ADMINISTERED. DENIES NEEDS. SIDE RAILS UP X2. BED IN LOW POSITION. CALL LIGHT IN REACH.
[2016-12-03 16:45] VITALS: BP 158/87
--- NOTE | 2016-12-03 17:55 | NUR ---
PATIENT IN LOW MCALLISTER POSITION RESTING WITH EYES CLOSED. RESPIRATIONS EVEN AND UNLABORED. SIDE RAILS UP X2. BED IN LOW POSITION. CALL LIGHT IN REACH.
--- NOTE | 2016-12-03 19:50 | NUR ---
PATIENT IN SEMI-FOWLERS POSTION. BROUGHT PATIENT DRINK PER HIS REQUEST.
[2016-12-03 21:00] VITALS: BP 113/93
[2016-12-04 01:00] VITALS: BP 129/76
[2016-12-04 04:00] VITALS: BP 133/80
[2016-12-04 05:11] LABS: BASOPHILS 0.5 % (0.0-2.0); EOSINOPHILS 1.8 % (0-7); HEMATOCRIT 40.3 % (42.0-54.0); HEMOGLOBIN 12.6 g/dL (13.5-17.5); IMMATURE GRANULOCYTES 0.2 % (0-5); LYMPHOCYTES 26.2 % (15-50); MCH 25.5 pg (26.0-34.0); MCHC 31.3 g/dL (31.0-37.0); MCV 81.4 fL (80.0-100.0); MEAN PLATELET VOLUME 11.4 fL (7.4-10.4); MONOCYTES 6.9 % (2-11); NEUTROPHILS 64.4 % (40-80); RBC 4.95 10x6/uL (4.20-6.10); RDW 16.8 % (11.5-14.5); WBC 6.3 10x3/uL (4.8-10.8)
[2016-12-04 05:19] LABS: INR 1.17 (0.85-1.17); PROTIME 14.8 SECONDS (11.6-15.0)
[2016-12-04 05:25] LABS: ALBUMIN 2.4 g/dL (3.4-5.0); ANION GAP 9.8 mmol/L (8-16); BILIRUBIN - TOTAL 0.46 mg/dL (0.2-1.3); CALCIUM 8.6 mg/dL (8.5-10.1); CARBON DIOXIDE 29.9 mmol/L (21.0-32.0); CREATININE - SERUM 1.6 mg/dL (0.6-1.3); POTASSIUM - SERUM 3.7 mmol/L (3.5-5.1); PROTEIN - SERUM 7.2 g/dL (6.4-8.2)
[2016-12-04 05:29] LABS: PLATELET COUNT 204 10x3/uL (130-400)
--- NOTE | 2016-12-04 07:30 | NUR ---
RECIEVED PT DURING WALKING ROUNDS. PT RESTING IN BED WITH NO COMPLAINTS OF PAIN OR DISCOMFORT AT THIS TIME. PAGE PLACED TO AT THIS TIME DUE TO PT FSBS OF 64. ASSESSMENT DONE PER FLOWSHEET. BED IN LOW POSITION AND CALL LIGHT WITHIN REACH. WILL CONTINUE TO MONITOR.
[2016-12-04 08:00] VITALS: BP 163/90
--- NOTE | 2016-12-04 08:03 | NUR ---
SPOKE WITH ADÁN STOCKTON THE NURSE WITH DR. LOAIZA. RECIEVED ORDERS FOR PROTOCOL TO COVER LOW BLOOD SUGAR. WILL CONTINUE TO MONITOR.
--- NOTE | 2016-12-04 09:28 | NUR ---
FSBS 92 AT THIS TIME. WILL CONTINUE TO MONITOR.
--- NOTE | 2016-12-04 10:42 | NUR ---
PT TAKEN TO IR AT THIS TIME.
--- NOTE | 2016-12-04 13:20 | NUR ---
RECIEVED REPORT FROM ADÁN FORMAN FROM . PT RETURNED TO ROOM, FLAT IN BED WITH RIGHT LEG STRAIGHT. WILL CONTINUE TO MONITOR.
--- NOTE | 2016-12-04 13:40 | NUR ---
NUTRITION MONITORING & EVAL CHART REVIEWED. PT CURRENTLY NPO FOR PROCEDURE. WILL PROVIDE DIET WHEN RESUMED, MONITOR PT PROGRESS. RD FOLLOWING
[2016-12-04 15:58] VITALS: BP 164/83
--- NOTE | 2016-12-04 16:14 | NUR ---
Patient Name: AZN FRENCH Encounter No: [id number] : 1940 Primary Insurance: [employer] MEDICARE PPO or HMO Anticipated DC Date: 12-02-2016 Planned Disposition: Home External Planned Provider: : LAILAP follow-up note: Patient and family in agreement with discharge plan. No changes to plan. Case management will follow and assist as needed. Tea Cummings
--- NOTE | 2016-12-04 16:31 | NUR ---
LYING IN BED,WITHOUT DISTRESS,CALL LIGHT IN REACH.
--- NOTE | 2016-12-04 19:41 | NUR ---
PATIENT IN SEMI-FOWLERS POSITION. BROUGHT PATIENT A DRINK PER HIS REQUEST.
[2016-12-04 21:00] VITALS: BP 130/76
[2016-12-05 01:00] VITALS: BP 122/68
[2016-12-05 07:55] VITALS: BP 149/88
[2016-12-05 09:16] LABS: ANION GAP 9.2 mmol/L (8-16); CARBON DIOXIDE 28.5 mmol/L (21.0-32.0); CREATININE - SERUM 1.3 mg/dL (0.6-1.3); POTASSIUM - SERUM 4.7 mmol/L (3.5-5.1)
[2016-12-05 09:21] LABS: HEMOGLOBIN 13.1 g/dL (13.5-17.5); MCH 25.2 pg (26.0-34.0); MCHC 30.5 g/dL (31.0-37.0); MCV 82.7 fL (80.0-100.0); MEAN PLATELET VOLUME 11.6 fL (7.4-10.4); RBC 5.2 10x6/uL (4.20-6.10); RDW 16.8 % (11.5-14.5); WBC 5.7 10x3/uL (4.8-10.8)
--- NOTE | 2016-12-05 09:30 | NUR ---
ASSESSMEN TPER FLOW SHEET.PT WITHOUT DISTRESS AND DENIES PAIN.SLEEPY THIS AM.CALL LIGHT IN REACH
--- NOTE | 2016-12-05 10:00 | NUR ---
CALL FROM FAMILY,PASSWORD CONFIRMED.UPDATE GIVEN
[2016-12-05 12:05] VITALS: BP 145/80
--- NOTE | 2016-12-05 15:01 | NUR ---
REMAINS WITHOUT NEEDS.MEDS PER MAR ORDERED.WAITING ON S[place] FROM PHARMACY.MONITOR
[2016-12-05 15:38] VITALS: BP 136/73
--- NOTE | 2016-12-05 19:00 | NUR ---
PATIENT SLEEPING SUPINE IN BED. HOB 30 DEGREES. RR EVEN AND UNLABORED. 0 S/S OF DISTRESS. IV'S TO RIGHT AC AND RIGHT FA S/L WITH NO REDNESS OR SWELLING. SRX2. BED LOW. CALL LIGHT WITHIN REACH.
--- NOTE | 2016-12-05 19:26 | NUR ---
RESTING WITHOUT DISTRESS,WITHOUT CHANGE.CONT PLAN OF CARE
[2016-12-05 20:00] VITALS: BP 145/84
--- NOTE | 2016-12-05 22:30 | NUR ---
ASSESSMENT COMPLETE. NIGHTTIME MEDS GIVEN. 8 UNITS HUMULIN GIVEN FOR BS OF 218. NO OTHER NEEDS AT THIS TIME.
[2016-12-06] VITALS: BP 168/91
[2016-12-06 04:00] VITALS: BP 148/79
[2016-12-06 07:03] LABS: BASOPHILS 0.5 % (0.0-2.0); EOSINOPHILS 1.6 % (0-7); HEMATOCRIT 40.6 % (42.0-54.0); HEMOGLOBIN 12.3 g/dL (13.5-17.5); LYMPHOCYTES 22.5 % (15-50); MCH 25.3 pg (26.0-34.0); MCHC 30.3 g/dL (31.0-37.0); MCV 83.4 fL (80.0-100.0); MEAN PLATELET VOLUME 11.4 fL (7.4-10.4); MONOCYTES 7.7 % (2-11); NEUTROPHILS 67.7 % (40-80); PLATELET COUNT 187 10x3/uL (130-400); RBC 4.87 10x6/uL (4.20-6.10); WBC 5.6 10x3/uL (4.8-10.8)
[2016-12-06 07:08] LABS: ALBUMIN 2.2 g/dL (3.4-5.0); ANION GAP 9.5 mmol/L (8-16); BILIRUBIN - TOTAL 0.4 mg/dL (0.2-1.3); CALCIUM 8.2 mg/dL (8.5-10.1); CARBON DIOXIDE 28.7 mmol/L (21.0-32.0); CREATININE - SERUM 1.4 mg/dL (0.6-1.3); POTASSIUM - SERUM 4.2 mmol/L (3.5-5.1)
--- NOTE | 2016-12-06 07:30 | NUR ---
PT RESTING IN BED WITH EYES CLOSED RESPS EVENAND NON LABORED NO ACUTE DISTRESS NTOED VOICES ALLNEEDS TO STAFF AROUSES EASILY TO VERBAL STIMULI.
--- NOTE | 2016-12-06 07:53 | NUR ---
PATIENT RESTING QUIETLY WITH EYES CLOSED. RESPIRATIONS ARE EVEN AND UNLABORED ON ROOM AIR. NO SIGNS OF DISTRESS NOTED. IV TO RIGHT FOREARM SALINE LOCKED. NO SIGNS OF DISTRESS NOTED. BED IN LOWEST POSITION, CALL LIGHT IN REACH. BED RAILS UP X'S 2.
[2016-12-06 07:56] VITALS: BP 154/79
--- NOTE | 2016-12-06 09:00 | NUR ---
SPOUSE AT BEDSIDE SPOKE AT LENGTH ABOUT PT HAVING HOME BEHAVIORS AND PERSONALITY CHANGES. REQUESTED A [facility] EVALUATION PRIOR TO DISCHARGE.
[2016-12-06 12:02] VITALS: BP 149/82
--- NOTE | 2016-12-06 12:30 | NUR ---
NO DISTRESS NOTED VOICES ALL NEES FSBS PRIOR TO LUNCH MEAL 149 NO COVVERAGE NEEDED
[2016-12-06 15:31] VITALS: BP 140/76
--- NOTE | 2016-12-06 16:00 | NUR ---
DR WEBER ROUNDS NEW ORDERS FOR CONSENT TO SURGERY IN AM NPO AFTER [place]
--- NOTE | 2016-12-06 18:27 | NUR ---
NO DISTRESS NOTED VOICES NEEDS TO STAFF FSBS 306 COVERED PER ORDER SLIDING SCALE
[2016-12-06 20:00] VITALS: BP 152/76
[2016-12-07] VITALS: BP 143/72
--- NOTE | 2016-12-07 02:21 | NUR ---
ASSESSED AT THE BEGINNING OF THE SHIFT. PT IS ALERT AND ORIENTED, ABLE TO VERBALIZE NEEDS. HE IS ABLE TO TURN / REPOSITION HIMSELF FOR COMFORT AND IS ALSO GETTING UP TO THE BATHROOM TO VOID. THE DRESSING TO HIS LEFT FOOT WILL BE REMOVED WHEN WE DO HIS HIBICLENS BATH THIS MORNING AND HE ALSO KNOWS HE IS NPO SINCE MIDNIGHT. THE BED IS LOW, RAILS UP X'S 2 WITH THE CALL LIGHT AT HAND.
[2016-12-07 04:00] VITALS: BP 143/80
[2016-12-07 06:32] LABS: BASOPHILS 0.4 % (0.0-2.0); EOSINOPHILS 1.1 % (0-7); IMMATURE GRANULOCYTES 0.2 % (0-5); LYMPHOCYTES 24.9 % (15-50); MCH 25.1 pg (26.0-34.0); MCHC 30.6 g/dL (31.0-37.0); MCV 82.2 fL (80.0-100.0); MEAN PLATELET VOLUME 11.5 fL (7.4-10.4); MONOCYTES 8.5 % (2-11); NEUTROPHILS 64.9 % (40-80); PLATELET COUNT 200 10x3/uL (130-400); RBC 4.38 10x6/uL (4.20-6.10); WBC 4.6 10x3/uL (4.8-10.8)
[2016-12-07 07:04] LABS: ALBUMIN 2.1 g/dL (3.4-5.0); ANION GAP 11.7 mmol/L (8-16); BILIRUBIN - TOTAL 0.3 mg/dL (0.2-1.3); CALCIUM 7.8 mg/dL (8.5-10.1); CARBON DIOXIDE 28.9 mmol/L (21.0-32.0); CREATININE - SERUM 1.4 mg/dL (0.6-1.3); POTASSIUM - SERUM 4.6 mmol/L (3.5-5.1); PROTEIN - SERUM 5.9 g/dL (6.4-8.2)
--- NOTE | 2016-12-07 08:00 | NUR ---
PT AWAKE AND ALERT ORINETED X 3 NPO AFTER MIDNIGHT LAST NIGHT FOR EXCISION AND DEBRIDMENT TODAY IN OR.
[2016-12-07 08:09] VITALS: BP 142/80
--- NOTE | 2016-12-07 10:10 | NUR ---
PATIENT SITTING UP ON SIDE OF BED ALERT. NO SIGNS OF DISTRESS NOTED. BED IN LOW POSITION. CALL LIGHT IN REACH.
--- NOTE | 2016-12-07 11:00 | NUR ---
NOTED TO HAVE EDEMA TO BILAT UPPER EXTREMITES. PIV WITH NOTED PHLEBITIS RESITE ATTEMPTED X 3 PER THIS NURSE PER CAD DESIGNER X 2 AND LOCAL GOVERNMENT LEGISLATOR RN X 1 UNABLE TO RESITE. SURGERY TEAM NOTIFIED SPOKE WITH GAMA.
[2016-12-07 12:12] VITALS: BP 153/84
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
--- NOTE | 2016-12-07 13:00 | NUR ---
GAMA NOTIFIED NO PREOP ORDERS IN TO PREOP FOR OR STATED "THEY ARE BIG BOYS AND IF THEY DIDNT GET ORDERS IN THEN THEY CAN PREOP OVER HERE."
--- NOTE | 2016-12-07 13:40 | NUR ---
TO OR AT THSI TIME PER BED
[2016-12-07 15:59] VITALS: BP 157/77
--- NOTE | 2016-12-07 16:00 | NUR ---
RETURNED FROM RECOVERY ROOM WITH DRESSING NOTED TO LEFT FOOT NO ACUTE DISTRESS NOTED AWAKE AND ALERT ORINETED X 3 LUNGS CLEAR BILATERALLY HRRR
--- NOTE | 2016-12-07 17:15 | NUR ---
PT NOTED TO HAVE WEEPING EDEMA TO LEFT ARM NEW ORDERS PER DR FUENTES FOR 20 MG LASIX FOR MILD DIURESSIS.
--- NOTE | 2016-12-07 19:00 | NUR ---
PATIENT SLEEPING SUPINE IN BED. HOB 2O DEGREES. RR EVEN AND UNLABORED. 0 S/S OF DISTRESS. IV TO RIGHT THUMB PATENT WITH NO REDNESS OR SWELLING. BANDAGE TO LEFT FOOT CDI. SRX2. BED LOW. CALL LIGHT WITHIN REACH.
[2016-12-07 20:30] VITALS: BP 190/89
[2016-12-08 00:08] VITALS: BP 176/91
[2016-12-08 04:30] VITALS: BP 124/82
[2016-12-08 05:02] LABS: BASOPHILS 0.5 % (0.0-2.0); EOSINOPHILS 1.2 % (0-7); HEMATOCRIT 37.4 % (42.0-54.0); HEMOGLOBIN 11.5 g/dL (13.5-17.5); LYMPHOCYTES 25.4 % (15-50); MCH 25.2 pg (26.0-34.0); MCHC 30.7 g/dL (31.0-37.0); MEAN PLATELET VOLUME 11.5 fL (7.4-10.4); MONOCYTES 7.4 % (2-11); NEUTROPHILS 65.5 % (40-80); PLATELET COUNT 197 10x3/uL (130-400); RBC 4.56 10x6/uL (4.20-6.10); RDW 17.3 % (11.5-14.5); WBC 4.2 10x3/uL (4.8-10.8)
[2016-12-08 05:26] LABS: ALBUMIN 2.2 g/dL (3.4-5.0); ANION GAP 10.7 mmol/L (8-16); BILIRUBIN - TOTAL 0.35 mg/dL (0.2-1.3); CALCIUM 8.4 mg/dL (8.5-10.1); CARBON DIOXIDE 28.4 mmol/L (21.0-32.0); CREATININE - SERUM 1.3 mg/dL (0.6-1.3); POTASSIUM - SERUM 4.1 mmol/L (3.5-5.1); PROTEIN - SERUM 6.6 g/dL (6.4-8.2)
--- NOTE | 2016-12-08 07:20 | NUR ---
PATIENT RECEIVED ALERT IN LOW MCALLISTER POSITION. RESPIRATIONS EVEN AND UNLABORED. SIDE RAILS UP X2. BED IN LOW POSITION. CALL LIGHT IN REACH. DENIES NEEDS.
[2016-12-08 07:39] LABS: INR 1.27 (0.85-1.17); PROTIME 15.8 SECONDS (11.6-15.0)
--- NOTE | 2016-12-08 08:20 | NUR ---
PATIENT SITTING UP ON SIDE OF BED ALERT. NO SIGNS OF DISTRESS NOTED. SCHEDULED MEDICATION ADMINISTERED. SIDE RAILS UP X2. BED IN LOW POSITION. CALL LIGHT IN REACH.
[2016-12-08 08:30] VITALS: BP 159/90
--- NOTE | 2016-12-08 11:20 | NUR ---
PATIENT SITTING UP ON SIDE OF BED ALERT. NO SIGNS OF DISTRESS NOTED. ACCU CHECK 183. 4 UNITS INSULIN PER SLIDING SCALE. DENIES NEEDS. BED IN LOW POSITION. CALL LIGHT IN REACH.
[2016-12-08 12:30] VITALS: BP 130/72
--- NOTE | 2016-12-08 13:20 | NUR ---
DRESSING TO LEFT FOOT CHANGED PER ORDER. OLD DRESSING REMOVED. BLOOD DRAINAGE NOTED. CLEANSED WITH SAF CLEANSE. WET TO DRY DRESSING APPLIED WITH 4X4 AND WRAPPED WITH KERLEX AND DERICK. WELL TOLERATED.
[2016-12-08 15:30] VITALS: BP 129/76
--- NOTE | 2016-12-08 16:10 | NUR ---
ACCU CHECK 176. 4 UNITS INSULIN PER SLIDING SCALE. DENIES NEEDS. SIDE RAILS UP X2. BED IN LOW POSITION. CALL LIGHT IN REACH.
--- NOTE | 2016-12-08 18:00 | NUR ---
SITTING UP ON SIDE OF BED ALERT AND EATING DINNER. TOLERATING WELL. DENIES NEEDS. BED IN LOW POSITION. CALL LIGHT IN REACH.
--- NOTE | 2016-12-08 19:23 | NUR ---
PT RECEIVED SLEEPING. NO SIGNS OF DISTRESS. RESPIRATIONS EVEN AND UNLABORED. BED LOW, CALL LIGHT IN REACH.
[2016-12-08 20:00] VITALS: BP 162/81
--- NOTE | 2016-12-08 21:11 | NUR ---
PT RESTING IN BED. NO SIGNS OF DISTRESS. NO COMPLAINTS OF PAIN. NIGHT MEDS GIVEN. DIABETIC SNACK GIVEN. DENIES NEEDS AT THIS TIME. BED LOW, CALL LIGHT IN REACH, WILL MONITOR.
--- NOTE | 2016-12-08 23:22 | NUR ---
PT SLEEPING. NO SIGNS OF DISTRESS. WILL MONITOR.
[2016-12-09] VITALS: BP 151/83
--- NOTE | 2016-12-09 02:05 | NUR ---
PT SLEEPING. BED LOW, CALL LIGHT IN REACH.
--- NOTE | 2016-12-09 03:19 | NUR ---
RECEIVED PT AT 0300 FROM OFF GOING NURSE. PT IS RESTING QUIET IN BED WITH EASY RESPIRATIONS AND NO DISTRESS NOTED. HE KEEPS THE LIGHT ON AND THE DOOR OPEN PER PREFERENCE. THE BED IS LOW, RAILS UP X'S 2 WITH THE CALL LIGHT AT HAND.
[2016-12-09 04:00] VITALS: BP 155/72
[2016-12-09 05:11] LABS: BASOPHILS 0.4 % (0.0-2.0); EOSINOPHILS 1.2 % (0-7); HEMOGLOBIN 12.2 g/dL (13.5-17.5); IMMATURE GRANULOCYTES 0.2 % (0-5); LYMPHOCYTES 21.8 % (15-50); MCH 25.6 pg (26.0-34.0); MCHC 31.3 g/dL (31.0-37.0); MCV 81.9 fL (80.0-100.0); MEAN PLATELET VOLUME 11.4 fL (7.4-10.4); MONOCYTES 7.9 % (2-11); NEUTROPHILS 68.5 % (40-80); PLATELET COUNT 205 10x3/uL (130-400); RBC 4.76 10x6/uL (4.20-6.10)
[2016-12-09 05:20] LABS: PROTIME 18.8 SECONDS (11.6-15.0)
[2016-12-09 05:31] LABS: ALBUMIN 2.3 g/dL (3.4-5.0); ANION GAP 11.5 mmol/L (8-16); BILIRUBIN - TOTAL 0.32 mg/dL (0.2-1.3); CALCIUM 8.3 mg/dL (8.5-10.1); CARBON DIOXIDE 29.1 mmol/L (21.0-32.0); CREATININE - SERUM 1.4 mg/dL (0.6-1.3); POTASSIUM - SERUM 3.6 mmol/L (3.5-5.1); PROTEIN - SERUM 6.9 g/dL (6.4-8.2)
[2016-12-09 05:34] LABS: INR 1.58 (0.85-1.17)
--- NOTE | 2016-12-09 07:15 | NUR ---
PATIENT RECEIVED SITTING UP ON SIDE OF BED ALERT. NO SIGNS OF DISTRESS NOTED. DENIES NEEDS. SIDE RAILS UP X2. BED IN LOW POSITION. CALL LIGHT IN REACH.
[2016-12-09 09:39] VITALS: BP 180/81
--- NOTE | 2016-12-09 11:22 | NUR ---
ACCU CHECK 154. INSULIN PER SLIDING SCALE. DENIES NEEDS. SIDE RAILS UP X2. BED IN LOW POSITION. CALL LIGHT IN REACH.
[2016-12-09 12:46] VITALS: BP 149/84
--- NOTE | 2016-12-09 13:30 | NUR ---
IV TO RIGHT WRIST LEAKING. IV D/C WITH CATH TIP INTACT. SITE COVERED WITH GAUZE AND BANDAID. NEW 22 GAUGE IV SITED TO RIGHT FOREARM X1 ATTEMPT. FLUSHES EASY WITH BRISK BLOOD RETURN PRESENT. SECURED WITH TAPE AND TEGADERM. IVF INFUSING WITHOUT DIFFICULTY
--- NOTE | 2016-12-09 16:07 | NUR ---
ACCU CHECK 166. INSULIN PER SLIDING SCALE. BED IN LOW POSITION. JAIRO LIGHT IN REACH.
[2016-12-09 16:42] VITALS: BP 147/82
--- NOTE | 2016-12-09 17:19 | NUR ---
PATIENT SITTING UP ON SIDE OF BED EATING DINNER. NO SIGNS OF DISTRESS NOTED. BED IN LOW POSITION. CALL LIGHT IN REACH.
--- NOTE | 2016-12-09 19:10 | NUR ---
RECIEVED SHIFT REPORT. PT IS LYING IN BED. ALERT AND ORIENTED AND ABLE TO VERBALIZE NEEDS. IV IS PATENT AND SALINE LOC AT THIS TIME. PT REFUSES SCD'S TO BE ON. DRESSING TO LEFT FOOT C/D/I. PT DENIES ANY PAIN AT THIS TIME. PT IS AMBULATORY BUT WAS INSTRUCTED TO CALL FOR ANY ASSISTANCE NEEDED. NO NEEDS ARE VERBALIZED AT THIS TIME. WILL CONTINUE TO MONITOR. SIDE RAILS ARE UP X 2. BED IS IN LOWEST POSITION. CALL LIGHT IS WITHIN REACH.
--- NOTE | 2016-12-09 20:17 | NUR ---
SHIFT ASSESSMENT COMPLETED. NIGHT MEDS GIVEN WITH NO PROBLEMS. PT RECIEVED 4 UNITS INSULIN PER SLIDING SCALE FOR REBO=508. SCHEDULED LEVEMIR GIVEN. NO NEEDS ARE VOICED. WILL MONITOR. SIDE RAILS X 2. BED LOW. CALL LIGHT IN REACH.
[2016-12-09 21:00] VITALS: BP 134/71
[2016-12-10 01:00] VITALS: BP 138/70
[2016-12-10 04:58] LABS: BASOPHILS 0.4 % (0.0-2.0); EOSINOPHILS 1.2 % (0-7); HEMOGLOBIN 11.8 g/dL (13.5-17.5); MCH 25.1 pg (26.0-34.0); MCHC 30.3 g/dL (31.0-37.0); MEAN PLATELET VOLUME 11.1 fL (7.4-10.4); NEUTROPHILS 70.4 % (40-80); PLATELET COUNT 191 10x3/uL (130-400); RDW 17.2 % (11.5-14.5); WBC 4.9 10x3/uL (4.8-10.8)
[2016-12-10 05:00] VITALS: BP 144/73
[2016-12-10 05:21] LABS: INR 2.29 (0.85-1.17); PROTIME 25.3 SECONDS (11.6-15.0)
[2016-12-10 05:22] LABS: ALBUMIN 2.2 g/dL (3.4-5.0); ANION GAP 9.4 mmol/L (8-16); BILIRUBIN - TOTAL 0.3 mg/dL (0.2-1.3); CALCIUM 7.8 mg/dL (8.5-10.1); CARBON DIOXIDE 30.3 mmol/L (21.0-32.0); CREATININE - SERUM 1.3 mg/dL (0.6-1.3); POTASSIUM - SERUM 3.7 mmol/L (3.5-5.1); PROTEIN - SERUM 6.2 g/dL (6.4-8.2)
--- NOTE | 2016-12-10 07:30 | NUR ---
SITTING UP AT SIDE OF BED AT THIS TIME. DENIES NEEDS. CALL LIGHT IN REACH, WILL CONTINUE WITH PLAN OF CARE.
[2016-12-10 08:15] VITALS: BP 156/81
--- NOTE | 2016-12-10 10:07 | NUR ---
SCHEDULED MEDICATIONS ADMINISTERED AT THIS TIME WITHOUT PROBLEM. FSBS 203 AT THIS TIME AND INSULIN ADMINISTERED PER SLIDING SCALE. DRESSING CHANGE PERFORMED TO LEFT FOOT PER ORDERS. PT REFUSES SCD'S. IF TO RIGHT FOREARM PATENT WITH BRISK BLOOD RETURN PRESENT. DENIES PAIN. CALL LIGHT IN REACH, BED IN LOWEST POSITION AND LOCKED. DOOR OPEN AND WILL CONTINUE WITH PLAN OF CARE.
--- NOTE | 2016-12-10 12:15 | NUR ---
NUTRITION MONITORING & EVAL CHART REVIEWED, PT VISIT. TOLERATING ADA DIET, 75% TO 100% INTAKE MOST MEALS. RD FOLLOWING
--- NOTE | 2016-12-10 12:16 | NUR ---
SCHEDULED ANTIBIOTIC ADMINISTERED AT THIS TIME THROUGH RIGHT FOREARM IV. PT DENIES NEEDS OR PAIN AT THIS TIME. CALL LIGHT IN REACH, WILL CONTINUE WITH PLAN OF CARE.
[2016-12-10 12:22] VITALS: BP 151/81
--- NOTE | 2016-12-10 14:00 | NUR ---
ATTEMPTED TO CALL PATIENT'S TO LET HER KNOW OF DISCHARGE X3 WITH VOICEMAILS LEFT EACH TIME.
--- NOTE | 2016-12-10 14:44 | NUR ---
CM REASSESSMENT NOTE: PATIENT IS DISCHARGING HOME TODAY WITH [facility]. PATIENT SIGNED THE ANN FORM. NURSING TRYING TO REACH FOR DISCHARGE. PATIENT HAS BEEN SET UP WITH THE WOUND CLINIC
--- NOTE | 2016-12-10 15:05 | NUR ---
ARVIN FRENCH SPEAKING WITH CASE MANAGEMENT REGARDING HER 'S DISCHARGE AT THIS TIME.
--- NOTE | 2016-12-10 15:50 | NUR ---
DC REASSESSMENT NOTE: CANNOT TAKE CARE OF PATIENT AT HOME AND NOW PATIENT HAS A REFERRAL IN TO [facility]. PATIENT SIGNED THE ANN FORM AND REFERRAL SENT.
[2016-12-10 16:45] VITALS: BP 147/80
--- NOTE | 2016-12-10 19:30 | NUR ---
RECIEVED SHIFT REPORT. PT IS LYING IN BED. ALERT AND ORIENTED AND ABLE TO VERBALIZE NEEDS. IV IS PATENT AND SALINE LOC AT THIS TIME. PT IS AMBULATORY BUT WAS INSTRUCTED TO CALL FOR ANY ASSISTANCE NEEDED. DRESSING TO LEFT FOOT C/D/I. PT DENIES ANY PAIN AT THIS TIME. NO NEEDS ARE VERBALIZED AT THIS TIME. WILL CONTINUE TO MONITOR. SIDE RAILS ARE UP X 2. BED IS IN LOWEST POSITION. CALL LIGHT IS WITHIN REACH.
--- NOTE | 2016-12-10 20:56 | NUR ---
SHIFT ASSESSMENT COMPLETED. NIGHT MEDS GIVEN WITH NO PROBLEMS. PT RECIEVED 8 UNITS INSULIN PER SLIDING SCALE FOR MJWV=081. SCHEDULED LEVEMIR GIVEN. NO NEEDS ARE VOICED. WILL MONITOR. SIDE RAILS X 2. BED LOW. CALL LIGHT IN REACH.
[2016-12-10 20:58] VITALS: BP 148/80
[2016-12-11 01:48] VITALS: BP 150/81
[2016-12-11 04:41] VITALS: BP 145/78
--- NOTE | 2016-12-11 07:30 | NUR ---
AWAKE AND ALERT. ORIENTED X3. NO C/O AT THIS TIME. DENIES NEEDS. LUNGS ARE CLEAR BULATERALLY, NO COUGH NOTED. SKIN IS INTACT WITHOUT REDNESS EXCEPT SOME EDEMA NOTED TO BILATERAL ARMS AND DRESSING TO LEFT FOOT WOUND DRY AND INTACT. SL TO RIGHT FOREARM PATNET WITHOUT REDNESS AT INSERTION SITE.
[2016-12-11 08:57] VITALS: BP 159/88
--- NOTE | 2016-12-11 09:00 | NUR ---
TOOK AM MEDS WITHOUT DIFFICULTY. ATE MOST OF BREAKFAST. DENIES NEEDS.
[2016-12-11 11:04] LABS: BASOPHILS 0.3 % (0.0-2.0); EOSINOPHILS 0.8 % (0-7); HEMATOCRIT 38.8 % (42.0-54.0); IMMATURE GRANULOCYTES 0.2 % (0-5); LYMPHOCYTES 12.3 % (15-50); MCH 25.1 pg (26.0-34.0); MCHC 30.9 g/dL (31.0-37.0); MEAN PLATELET VOLUME 11.2 fL (7.4-10.4); MONOCYTES 5.6 % (2-11); NEUTROPHILS 80.8 % (40-80); PLATELET COUNT 220 10x3/uL (130-400); RBC 4.79 10x6/uL (4.20-6.10); RDW 17.1 % (11.5-14.5)
[2016-12-11 11:19] LABS: ALBUMIN 2.4 g/dL (3.4-5.0); ANION GAP 7.2 mmol/L (8-16); BILIRUBIN - TOTAL 0.3 mg/dL (0.2-1.3); CALCIUM 8.4 mg/dL (8.5-10.1); CARBON DIOXIDE 31.7 mmol/L (21.0-32.0); CREATININE - SERUM 1.4 mg/dL (0.6-1.3); POTASSIUM - SERUM 3.9 mmol/L (3.5-5.1); PROTEIN - SERUM 6.9 g/dL (6.4-8.2)
[2016-12-11 11:49] LABS: INR 3.16 (0.85-1.17); PROTIME 32.8 SECONDS (11.6-15.0)
[2016-12-11 13:06] VITALS: BP 160/90
--- NOTE | 2016-12-11 17:00 | NUR ---
FSBS 105. NO COVERAGE. NO CHANGES NOTED. DENIES NEEDS.
[2016-12-11 17:18] VITALS: BP 157/75
--- NOTE | 2016-12-11 19:35 | NUR ---
RECIEVED SHIFT REPORT. PT IS SITTING IN CHAIR. ALERT AND ORIENTED AND ABLE VERBALIZE NEEDS. IV IS PATENT AND SALINE LOC AT THIS TIME. PT REFUSES SCD'S. PT IS AMBULATORY BUT WAS INSTRUCTED TO CALL FOR ANY ASSISTANCE NEEDED. DRESSING TO LEFT FOOT C/D/I. PT DENIES ANY PAIN AT THIS TIME. NO NEEDS ARE VERBALIZED AT THIS TIME. WILL CONTINUE TO MONITOR. SIDE RAILS ARE UP X 2. BED IS IN LOWEST POSITION. CALL LIGHT IS WITHIN REACH.
[2016-12-11 21:00] VITALS: BP 149/81
--- NOTE | 2016-12-11 22:07 | NUR ---
SHIFT ASSESSMENT COMPLETED. NIGHT MEDS GIVEN WITH NO PROBLEMS. PT RECIEVED NO INSULIN PER SLIDING SCALE FOR TSMU=150. SCHEDULED LEVEMIR HELD DUE TO FSBS. NO NEEDS ARE VOICED. WILL MONITOR. SIDE RAILS X 2. BED LOW. CALL LIGHT IN REACH.
[2016-12-12 01:00] VITALS: BP 146/82
[2016-12-12 05:00] VITALS: BP 138/80
[2016-12-12 06:06] LABS: BASOPHILS 0.3 % (0.0-2.0); EOSINOPHILS 0.3 % (0-7); HEMATOCRIT 38.3 % (42.0-54.0); HEMOGLOBIN 11.7 g/dL (13.5-17.5); IMMATURE GRANULOCYTES 0.2 % (0-5); LYMPHOCYTES 14.2 % (15-50); MCH 24.7 pg (26.0-34.0); MCHC 30.5 g/dL (31.0-37.0); MCV 80.8 fL (80.0-100.0); MEAN PLATELET VOLUME 10.8 fL (7.4-10.4); PLATELET COUNT 241 10x3/uL (130-400); RBC 4.74 10x6/uL (4.20-6.10); RDW 17.3 % (11.5-14.5); WBC 6.6 10x3/uL (4.8-10.8)
[2016-12-12 06:15] LABS: INR 3.05 (0.85-1.17); PROTIME 31.8 SECONDS (11.6-15.0)
[2016-12-12 06:49] LABS: ALBUMIN 2.6 g/dL (3.4-5.0); ANION GAP 15.3 mmol/L (8-16); BILIRUBIN - TOTAL 0.42 mg/dL (0.2-1.3); CALCIUM 8.8 mg/dL (8.5-10.1); POTASSIUM - SERUM 4.3 mmol/L (3.5-5.1); PROTEIN - SERUM 7.2 g/dL (6.4-8.2)
[2016-12-12 06:50] LABS: CREATININE - SERUM 1.8 mg/dL (0.6-1.3)
--- NOTE | 2016-12-12 08:07 | NUR ---
AWAKE AND ALERT. ORIENTED X3. NO C/O THIS AM. LUNGS ARE CLEAR BILATERALLY, OCCASSIONAL DRY COUGH NOTED. SKIN IS INTACT WITHOUT REDNESS EXCEPT WOUND TO LEFT FOOT WHICH HAS A DRY INTACT DRESSING IN PLACE. SL TO RIGHT FOREARM PATENT WITHOUT REDNESS AT INSERTION SITE. DENIES NEEDS.
[2016-12-12 08:47] VITALS: BP 157/81
--- NOTE | 2016-12-12 10:05 | NUR ---
UP IN CHAIR AT BEDSIDE. DENIES NEEDS.
--- NOTE | 2016-12-12 12:00 | NUR ---
FSBS 237. GIVEN 8 UNITS REGULAR SUBQ PER SS.
--- NOTE | 2016-12-12 12:20 | NUR ---
fsbs 237. given 8 units regular per ss.
[2016-12-12 12:30] VITALS: BP 141/77
--- NOTE | 2016-12-12 17:00 | NUR ---
FSBS 202. GIVEN 8 UNITS REGULAR SUBQ PER SS. SUPPER SERVED IN ROOM. PATIENT PULLED BANDAID OFF WOUND TO RIGHT AC AND WAS BLEEDING. CLEANED WITH WOUND CLEANSER AND TEGADERM APPLIED. WILL MONITOR. NO CHANGES NOTED AT THIS TIME. DRESSING TO LEFT FOOT CHANGED WELL. WOUND IS CLEAN AND NON ODOROUS.
[2016-12-12 17:29] VITALS: BP 148/70
--- NOTE | 2016-12-12 19:24 | NUR ---
PATIENT IN SEMI-FOWLERS POSITION. PATIENT STATED HE DOES NOT NEED ANYTHING AT THIS TIME.
[2016-12-12 21:00] VITALS: BP 143/77
[2016-12-13 01:00] VITALS: BP 132/74
[2016-12-13 05:20] VITALS: BP 136/78
[2016-12-13 05:21] LABS: BASOPHILS 0.2 % (0.0-2.0); EOSINOPHILS 0.7 % (0-7); HEMATOCRIT 38.1 % (42.0-54.0); HEMOGLOBIN 11.8 g/dL (13.5-17.5); LYMPHOCYTES 15.5 % (15-50); MCH 24.8 pg (26.0-34.0); MCV 80.2 fL (80.0-100.0); MEAN PLATELET VOLUME 10.6 fL (7.4-10.4); MONOCYTES 5.7 % (2-11); NEUTROPHILS 77.9 % (40-80); PLATELET COUNT 246 10x3/uL (130-400); RBC 4.75 10x6/uL (4.20-6.10); RDW 16.9 % (11.5-14.5); WBC 5.9 10x3/uL (4.8-10.8)
[2016-12-13 05:48] LABS: ALBUMIN 2.6 g/dL (3.4-5.0); ANION GAP 11.7 mmol/L (8-16); BILIRUBIN - TOTAL 0.3 mg/dL (0.2-1.3); CALCIUM 8.4 mg/dL (8.5-10.1); CREATININE - SERUM 1.7 mg/dL (0.6-1.3); POTASSIUM - SERUM 3.7 mmol/L (3.5-5.1); PROTEIN - SERUM 7.1 g/dL (6.4-8.2)
--- NOTE | 2016-12-13 08:31 | NUR ---
AWAKE AND ALERT. ORIENTED X3. NO C/O THIS AM. SITTING UP ON SIDE OF BED EATING BREAKFAST. LUNGS ARE CLEAR BILATERALLY, NO COUGH NOTED. SKIN IS INTACT WITHOUT REDNESS EXCEPT WOUND TO LEFT FOOT WHICH HAS A DRY INTACT DRESSING IN PLACE. WOUND TO RIGHT AC IS STILL OOZING SLIGHTLY. PRESSURE DRESSING APPLIED TO SAME. WILL CONTINUE TO MONITOR. SL TO RIGHT FOREARM IS LEAKING WELL.
[2016-12-13 09:08] VITALS: BP 143/76
[2016-12-13 09:55] LABS: INR 4.06 (0.85-1.17)
--- NOTE | 2016-12-13 11:30 | NUR ---
FSBS 166. WILL COVER. ULTRA SOUND IN PROGRESS TO RIGHT ARM.
[2016-12-13 12:30] VITALS: BP 144/77
--- NOTE | 2016-12-13 15:00 | NUR ---
ASSISTED TO BED PER STAFF. DRESSING TO LEFT FOOT CHANGED. SL TO RIGHT FOREARM D/C WITH CATHETER INTACT. WILL NOT RESTART AT THIS TIME. R/T BLEEDING. WILL CONTINUE TO MONITOR.
[2016-12-13 16:19] VITALS: BP 132/59
--- NOTE | 2016-12-13 17:00 | NUR ---
FSBS 103. NO COVERAGE REQUIRED. SUPPER TRAY SERVED IN ROOM. NO CHANGES NOTED.
--- NOTE | 2016-12-13 19:55 | NUR ---
PATIENT SLEEPING IN SEMI-FOWLERS POSITION.
[2016-12-13 21:00] VITALS: BP 143/84
--- NOTE | 2016-12-13 23:00 | NUR ---
CHANGED DRESSING ON PATIENT'S UPPER RIGHT ARM.
[2016-12-14 01:00] VITALS: BP 148/77
[2016-12-14 05:00] VITALS: BP 149/76
[2016-12-14 05:12] LABS: INR 3.74 (0.85-1.17); PROTIME 37.5 SECONDS (11.6-15.0)
[2016-12-14 05:17] LABS: EOSINOPHILS 0.6 % (0-7); HEMATOCRIT 36.2 % (42.0-54.0); HEMOGLOBIN 11.5 g/dL (13.5-17.5); IMMATURE GRANULOCYTES 2.2 % (0-5); LYMPHOCYTES 18.2 % (15-50); MCH 25.1 pg (26.0-34.0); MCHC 31.8 g/dL (31.0-37.0); MCV 78.9 fL (80.0-100.0); MEAN PLATELET VOLUME 11.1 fL (7.4-10.4); MONOCYTES 11.3 % (2-11); NEUTROPHILS 66.7 % (40-80); PLATELET COUNT 199 10x3/uL (130-400); RBC 4.59 10x6/uL (4.20-6.10)
[2016-12-14 05:18] LABS: WBC 7.8 10x3/uL (4.8-10.8)
[2016-12-14 05:20] LABS: ALBUMIN 2.5 g/dL (3.4-5.0); BILIRUBIN - TOTAL 0.48 mg/dL (0.2-1.3); CALCIUM 8.5 mg/dL (8.5-10.1); CARBON DIOXIDE 24.1 mmol/L (21.0-32.0); CREATININE - SERUM 1.6 mg/dL (0.6-1.3); PROTEIN - SERUM 6.4 g/dL (6.4-8.2)
[2016-12-14 05:27] LABS: ANION GAP 17.1 mmol/L (8-16); POTASSIUM - SERUM 5.2 mmol/L (3.5-5.1)
--- NOTE | 2016-12-14 07:00 | NUR ---
REPORT RECIEVED ASSUMED CARE. PATIENT IN BED WITH IV INTACT. NO COMPLAINTS. CALL LIGHT WITHIN REACH.
[2016-12-14 08:38] VITALS: BP 131/74
--- NOTE | 2016-12-14 09:37 | NUR ---
CM REASSESSMENT NOTE: PATIENT IS DISCHARGING TO [facility] TO A SKILLED BED. F[facility]ILITY [facility] WILL PICK PATIENT UP FOR TRANSPORT
--- NOTE | 2016-12-14 10:15 | NUR ---
PATIENT RECIEVED DISCHARGE INSTRUCTIONS. VERBALIZED UNDERSTANDING. NO QUESTIONS AT THIS TIME. CALL LIGHT WITHIN REACH.
--- NOTE | 2016-12-14 10:49 | NUR ---
PATIENT ESCORTED OUT OF HOSPITAL VIA WC TO [facility] TO BE TRANSFERRED TO [place]. PERSONAL BELONGINGS WITH PATIENT. REPORT CALLED TO
--- NOTE | 2017-01-12 12:06 | DS ---
PATIENT:ZAN FRENCH :38 MEDICAL RECORD: [id number] DISCHARGE SUMMARY ADMISSION DATE: 11/29/16 DISCHARGE DATE: 12/14/16 DISCHARGE DIAGNOSES: 1. 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 2. Chronic kidney disease stage IV. 3. 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 4. Type 2 diabetes with diabetic neuropathy. 5. Type 2 diabetes with diabetic chronic kidney disease. 6. Hypertensive chronic kidney disease. 7. Hyperlipidemia. 8. Atrial fibrillation. 9. Cardiac pacemaker. 10. Chronic obstructive pulmonary disease. 11. Unspecified asthma. 12. Anemia. 13. Stricture of arteries. 14. 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 DISCHARGE MEDICATIONS: Please see medical reconciliation form. DISPOSITION: The patient was transferred to a intermediate facility. HOSPITAL COURSE: Mr. French was admitted to the hospital after being seen in the office with a gangrenous area of his left foot over the fifth metatarsal head. He was admitted to the hospital for IV antibiotics and consultation with interventional radiology and Dr. Still. His wound was cared for. He was seen by Dr. Tatum who performed intervention on his popliteal and posterior tibioperoneal artery trunk with an excellent result. He then underwent debridement by Dr. Still and will be maintained on IV antibiotics. He could not return home because his cannot care for him; therefore, he was transferred to a intermediate facility for further convalescence and will be seen by myself and Dr. Still as an outpatient for further treatment of his left foot. He will also be referred to the wound clinic for further care. He has been given discharge instructions and wound precautions and will be seen as above. TRANSINT:[id number] Voice Confirmation ID: [id number] DOCUMENT ID: [id number] DYLAN LOAIZA MD at 1206 CC: [id number] DICTATION DATE: 01/05/17 1401 HOME HEALTH CARE PROVIDER: 01/05/171929 DIS IN 12/14/16 [address] [place] [address]
--- NOTE | 2017-01-30 10:17 | CN ---
PATIENT NAME:ZAN FRENCH MEDICAL RECORD: [id number] : 38 LOCATION:D[facility] ADMIT DATE: 11/29/16 ACCOUNT: [id number] CONSULTING PHYSICIAN: IGNACIO WEBER MD REFERRING PHYSICIAN: DYLAN LOAIZA MD DATE OF CONSULTATION: 11/19/2016 CHIEF COMPLAINT: Infection. This is a consultation note addendum. I personal was personally discussed this case with Dr. Loaiza. The patient has diabetic foot infection involving the left foot. He has warm feet. I do not think he has got an arterial inflow problem; however, I would just like to obtain the CTA of the aorta with runoffs as well as arterial duplexes with ABIs. Symptoms came on gradually. They are difficult to define. He has decreased sensation in the feet. This is a consultation note addendum. For the typed portion of the consult note, please see the chart. This included past medical and surgical history, allergies, current medications, and social history. REVIEW OF SYSTEMS: No nausea, vomiting. No fever, no chills. Positive for malodorous left lateral foot. PHYSICAL EXAMINATION: GENERAL: The patient does not appear acutely ill. He does appear chronically ill. VITAL SIGNS: Reviewed. HEAD: External ears appear normal. EYES: Extraocular movements are intact. NECK: Trachea is midline. CHEST: No intercostal retractions. PULMONARY: Nonlabored, no stridor. ABDOMEN: No peritonitis with movement. EXTREMITIES: As described above. PSYCHIATRIC: Normal affect. NEUROLOGIC: Nonfocal, no lethargy. The patient answers questions appropriately, moves all extremities well. BACK: No thoracic kyphosis. LYMPHATICS: No lymphangitic streaking of the exposed extremities. IMPRESSION: Diabetic foot infection. PLAN: IV antibiotics. Probable debridement. CTA of the aorta with runoffs. Arterial duplexes with ABIs. TRANSINT:[id number] Voice Confirmation ID: [id number] DOCUMENT ID: [id number] CONSULT REPORT [id number] ZAN FRENCH ROBERT MD at 1017 CC: [id number] DICTATION DATE: 11/29/16 171 WAREHOUSE STOCKER: 11/29/16 2100 DIS IN 12/14/16 [place] [id number]
--- NOTE | 2017-01-30 10:17 | OP ---
PATIENT NAME: ZAN FRENCH MEDICAL RECORD: [id number] :38 LOCATION:D.[facility] ADMISSION DATE:11/29/16 SURGEON: IGNACIO WEBER MD DATE OF OPERATION: 12/07/2016 PREOPERATIVE DIAGNOSIS: Gangrene, left foot. POSTOPERATIVE DIAGNOSIS: Gangrene, left foot. Please see dimensions below. PROCEDURE: Excisional debridement of gangrene of the left foot. This was located on the lateral aspect of the metatarsophalangeal joint of the fifth toe. The excision included necrotic skin and subcutaneous tissue, tendinous tissue, as well as ligamentous tissue. I noted no definite evidence of osteomyelitis. The debrided area was 3.8 anterior posterior dimension and 2.8 cm in the cephalad caudad dimension. OPERATIVE COURSE: The patient was conveyed to the operating room electively on 12/07/2016. General anesthesia was induced by anesthesia staff. The patient was positioned supine. The left lower extremity was sterilely prepped and draped. The debridement was carried out with a rongeur as well as with the scalpel. There was arterial inflow. This was controlled with electrocautery. The dimensions are listed above. This was a sharp excisional debridement back to healthy bleeding tissue. A saline wet to dry dressing was then applied. I will see the patient in my office in 3 weeks. There was a significant chance that he will not epithelialize over this wound and that he will require a fifth toe amputation. TRANSINT:[id number] Voice Confirmation ID: [id number] DOCUMENT ID: [id number] IGNACIO WEBER MD at 1017 CC: [id number] DICTATION DATE: 12/07/16 1548 FINISHED YARN EXAMINER: 12/07/16 1722 DIS IN 12/14/16 [address] [place] [address]
== END 2016-12-14 10:52 | DRG 253 ==
LOC: D.MS 12:46
PROVIDERS: Family Medicine; Family Medicine Adult Medicine; Internal Medicine Nephrology; Surgery; ADMIT Internal Medicine Cardiovascular Disease
PROC: 047N3ZZ Dilation of Left Popliteal Artery, Percutaneous Approach (ICD-10-PCS; 2016-12-04)
PROC: 047U3ZZ Dilation of Left Peroneal Artery, Percutaneous Approach (ICD-10-PCS; 2016-12-04)
PROC: B41D1ZZ Fluoroscopy of Aorta and Bilateral Lower Extremity Arteries using Low Osmolar Contrast (ICD-10-PCS; principal; 2016-12-07 14:00)
PROC: 0SBN0ZZ Excision of Left Metatarsal-Phalangeal Joint, Open Approach (ICD-10-PCS; principal; 2016-12-07 14:00)
DX: E11.52 Type 2 diabetes mellitus with diabetic peripheral angiopathy with gangrene (principal); N18.4 Chronic kidney disease, stage 4 (severe); I70.263 Atherosclerosis of native arteries of extremities with gangrene, bilateral legs; E11.40 Type 2 diabetes mellitus with diabetic neuropathy, unspecified; E11.22 Type 2 diabetes mellitus with diabetic chronic kidney disease; I12.9 Hypertensive chronic kidney disease with stage 1 through stage 4 chronic kidney disease, or unspecified chronic kidney disease; E78.5 Hyperlipidemia, unspecified; I48.91 Unspecified atrial fibrillation; Z95.0 Presence of cardiac pacemaker; J44.9 Chronic obstructive pulmonary disease, unspecified; J45.909 Unspecified asthma, uncomplicated; D64.9 Anemia, unspecified; I77.1 Stricture of artery; I25.10 Atherosclerotic heart disease of native coronary artery without angina pectoris

== ENCOUNTER 2016-12-25 07:45 | Inpatient (IN) | payer MEDICARE ==
[~2016-12-25] VITALS: Ht 182.9 cm; Wt 100.2 kg
[2016-12-25 01:00] VITALS: BP 133/80
[~2016-12-25 07:45] MED LIST changes: +LIPITOR80 MG PO
[2016-12-25 08:34] LABS: BASOPHILS 0.2 % (0.0-2.0); EOSINOPHILS 0.6 % (0-7); HEMATOCRIT 33.5 % (42.0-54.0); HEMOGLOBIN 10.1 g/dL (13.5-17.5); IMMATURE GRANULOCYTES 0.5 % (0-5); LYMPHOCYTES 11.1 % (15-50); MCH 24.5 pg (26.0-34.0); MCHC 30.1 g/dL (31.0-37.0); MCV 81.1 fL (80.0-100.0); MEAN PLATELET VOLUME 10.7 fL (7.4-10.4); MONOCYTES 6.8 % (2-11); NEUTROPHILS 80.8 % (40-80); PLATELET COUNT 169 10x3/uL (130-400); RBC 4.13 10x6/uL (4.20-6.10); RDW 17.5 % (11.5-14.5); WBC 8.1 10x3/uL (4.8-10.8)
[2016-12-25 08:38] LABS: INR 1.27 (0.85-1.17); PROTIME 15.8 SECONDS (11.6-15.0)
[2016-12-25 08:44] LABS: ANION GAP 9.9 mmol/L (8-16); BILIRUBIN - TOTAL 0.66 mg/dL (0.2-1.3); CALCIUM 8.3 mg/dL (8.5-10.1); CARBON DIOXIDE 32.7 mmol/L (21.0-32.0); CREATININE - SERUM 1.7 mg/dL (0.6-1.3); POTASSIUM - SERUM 3.6 mmol/L (3.5-5.1); PROTEIN - SERUM 6.4 g/dL (6.4-8.2)
--- NOTE | 2016-12-25 11:25 | NUR ---
PATIENT IV TO LEFT HAND BLEEDING. REMOVED AND RESTARTED IN RIGHT HAND X 1 STICK. NO COMPLAINTS. CALL LIGHT WITHIN REACH.
[2016-12-25 15:46] VITALS: BP 156/75
--- NOTE | 2016-12-25 18:45 | NUR ---
PATIENT IN BED WITH NO COMPLAINTS AT THIS TIME. IV INTACT. CALL LIGHT WITHIN REACH.
--- NOTE | 2016-12-25 19:20 | NUR ---
RECIEVED SHIFT REPORT. PT IS LYING IN BED. ALERT AND ORIENTED AND ABLE TO VERBALIZE NEEDS. IV IS PATENT AND FLUIDS ARE RUNNING PER ORDER. PT IS AMBULATORY WITH ASSISTANCE. DRESSING TO LEFT LEG AND FOOT C/D/I. PT DENIES ANY PAIN AT THIS TIME. NO NEEDS ARE VERBALIZED AT THIS TIME. WILL CONTINUE TO MONITOR. SIDE RAILS ARE UP X 2. BED IS IN LOWEST POSITION. CALL LIGHT IS WITHIN REACH.
[2016-12-25 21:00] VITALS: BP 129/83
--- NOTE | 2016-12-25 22:44 | NUR ---
SHIFT ASSESSMENT COMPLETED. NIGHT MEDS GIVEN WITH NO PROBLEMS. PT RECIEVED 8 UNITS INSULIN PER SLIDING SCALE FOR LINQ=161. SCHEDULED LEVEMIR ADMINISTERED PER ORDER. NO NEEDS ARE VOICED. WILL MONITOR. SIDE RAILS X 2. BED LOW. CALL LIGHT IN REACH.
[2016-12-26] VITALS (10 sets, daily range): BP systolic 125–174; BP diastolic 71–97; Ht 182.9 cm; Wt 100.2 kg
[2016-12-26 05:52] LABS: BASOPHILS 0.2 % (0.0-2.0); EOSINOPHILS 0.1 % (0-7); HEMATOCRIT 34.7 % (42.0-54.0); HEMOGLOBIN 10.4 g/dL (13.5-17.5); IMMATURE GRANULOCYTES 0.1 % (0-5); LYMPHOCYTES 13.6 % (15-50); MCH 24.3 pg (26.0-34.0); MCV 81.1 fL (80.0-100.0); MEAN PLATELET VOLUME 11.2 fL (7.4-10.4); MONOCYTES 6.6 % (2-11); NEUTROPHILS 79.4 % (40-80); PLATELET COUNT 200 10x3/uL (130-400); RBC 4.28 10x6/uL (4.20-6.10); RDW 17.7 % (11.5-14.5); WBC 9.2 10x3/uL (4.8-10.8)
[2016-12-26 05:54] LABS: INR 1.41 (0.85-1.17); PROTIME 17.1 SECONDS (11.6-15.0)
[2016-12-26 06:08] LABS: ALBUMIN 2.1 g/dL (3.4-5.0); ANION GAP 11.5 mmol/L (8-16); BILIRUBIN - TOTAL 0.56 mg/dL (0.2-1.3); CALCIUM 8.3 mg/dL (8.5-10.1); CARBON DIOXIDE 32.6 mmol/L (21.0-32.0); CREATININE - SERUM 1.8 mg/dL (0.6-1.3); POTASSIUM - SERUM 3.1 mmol/L (3.5-5.1); PROTEIN - SERUM 6.7 g/dL (6.4-8.2)
--- NOTE | 2016-12-26 07:45 | NUR ---
CONSENT FORMS REVIEWED AND SIGNED BY PATIENT AT THIS TIME. REMAINS NPO FOR PROCEDURE. DENIES NEEDS AT THIS TIME. WILL CONTINUE WITH PLAN OF CARE.
--- NOTE | 2016-12-26 08:20 | NUR ---
SCHEDULED MEDICATIONS HELD THIS AM D/T PT BEING NPO. IV TO RIGHT HAND PATENT WITH BRISK BLOOD RETURN PRESENT. CALL LIGHT IN REACH, ASSISTED PT UP TO BATHROOM WHERE HE VOIDED WITHOUT DIFFICULTY. WILL CONTINUE WITH PLAN OF CARE.
--- NOTE | 2016-12-26 10:45 | NUR ---
WOUND CARE CONSULT: PT IS SCHEDULED FOR DEBRIDEMENT OF LEFT FOOT WOUND TODAY IN OR WITH DR. WEBER. WOUND CARE WILL MONITOR NEEDED.
--- NOTE | 2016-12-26 11:56 | NUR ---
SPOKE WITH CARMELINA IN SURGERY DEPARTMENT REGARDING NEED FOR PRE OP ORDERS.
--- NOTE | 2016-12-26 12:15 | NUR ---
DRESSING TO RIGHT HAND IV REMOVED AND IV RE-DRESSED AT THIS TIME. DENIES NEEDS. REMAIN NPO. WILL CONTINUE WITH PLAN OF CARE.
--- NOTE | 2016-12-26 13:50 | NUR ---
TAKEN TO OR AT THIS TIME. WILL MONITOR PT WHEN HE RETURNS TO THE FLOOR.
--- NOTE | 2016-12-26 15:55 | NUR ---
REPORT RECEIVED FROM ADÁN MONSIVAIS IN RECOVERY AT THIS TIME. PT IS NOW ON 4L VIA NC. DRESSING TO LEFT FOOT C/D/I.
--- NOTE | 2016-12-26 16:00 | NUR ---
RECEIVED BACK TO THE FLOOR FROM RECOVERY AT THIS TIME. DRESSING TO LEFT FOOT C/D/I. IV TO RIGHT HAND PATENT. PT ALERT AND ORIENTED X4. POST OP VITAL SIGNS INTIATED PER PROTOCOL. CALL LIGHT IN REACH, WILL CONTINUE WITH PLAN OF CARE.
--- NOTE | 2016-12-26 16:44 | NUR ---
Patient Name: ZAN FRENCH Admission Status: ER Accout number: [id number] Admission Date: 12-25-2016 : 1940 Admission Diagnosis:TYPE 2 DIABETES MELLITUS WITH FOOT ULCER Attending: KENDRICK Current LOS: 1 Anticipated DC Date: 12-31-2016 Planned Disposition: Snf Facility Primary Insurance: [employer] MEDICARE PPO or HMO Discharge Planning Comments: CM MET WITH PATIENT REGARDING D/C NEEDS AND PLANS. PATIENT STATED HE HAS 3 STEPS W/RAILS TO ENTER HIS HOME AND NO STAIRS INSIDE. PATIENT IS INDEPENDENT WITH HIS CARE AND HAS A WALKER, CANE, AND GLUCOMETER AT HOME. PATIENTS PCP IS DR. RENO IN [place] AND USES [facility] IN [facility]. PATIENT CAME FROM [facility] AND WILL RETURN THERE AT DISCHARGE. PATIENTS (ARVIN) MAY PICK HIM UP AT DISCHARGE. CM WILL CONTINUE TO FOLLOW PATIENT WITH D/C NEEDS AND PLANS. PCP DR. RENO [facility].-----[phone] ARVIN () [phone] Narrative Writer: Tea Cummings Is the patient Alert and Oriented? Yes 0 * How many steps to enter\exit or inside your home? 3 W/RAILS 0 * PCP DR. RENO IN [place] 0 * [facility] 0 * Preadmission Environment Snf Facility 0 * Facility Name [facility] 0 * ADLs Independent 0 * Equipment Cane Glucometer Walker 0 * List name and contact numbers for known caregivers / representatives who currently or will assist patient after discharge: ARVIN (SPOUSE) [phone] * Community resources currently utilized None 0 * Additional services required to return to the preadmission environment? Yes 0 * Can the patient safely return to the preadmission environment? Yes 0 * Has this patient been hospitalized within the prior 30 days at any hospital? Yes 0 Grand Total: 0
--- NOTE | 2016-12-26 20:00 | NUR ---
AWAKE ALERT. SITTING UP IN BED WATCHING TV IV INFUSING TO RIGHT HAD WITHOUT REDNESS OR EDEMA NOTED. BILATERAL LOWER EXTREMITIES WITH REDNESS NOTED. DRSG TO LEFT FOOT INTTACT WITH DRAINAGE NOTED. CL IN REACH.
--- NOTE | 2016-12-27 02:31 | NUR ---
RESTING QUIETLY. NO DISTRESS NOTED. CL IN REACH.
--- NOTE | 2016-12-27 04:20 | NUR ---
RESITNG QUIETLY. CL IN REACH.
[2016-12-27 05:18] LABS: BASOPHILS 0.1 % (0.0-2.0); EOSINOPHILS 0.2 % (0-7); HEMATOCRIT 34.6 % (42.0-54.0); HEMOGLOBIN 10.3 g/dL (13.5-17.5); IMMATURE GRANULOCYTES 0.1 % (0-5); MCH 24.3 pg (26.0-34.0); MCHC 29.8 g/dL (31.0-37.0); MCV 81.8 fL (80.0-100.0); MEAN PLATELET VOLUME 10.9 fL (7.4-10.4); MONOCYTES 8.1 % (2-11); NEUTROPHILS 81.5 % (40-80); PLATELET COUNT 196 10x3/uL (130-400); RBC 4.23 10x6/uL (4.20-6.10); RDW 17.8 % (11.5-14.5); WBC 8.6 10x3/uL (4.8-10.8)
[2016-12-27 05:29] LABS: INR 1.64 (0.85-1.17); PROTIME 19.3 SECONDS (11.6-15.0)
[2016-12-27 05:41] LABS: ALBUMIN 2.1 g/dL (3.4-5.0); BILIRUBIN - TOTAL 0.49 mg/dL (0.2-1.3); CALCIUM 8.1 mg/dL (8.5-10.1); CARBON DIOXIDE 33.3 mmol/L (21.0-32.0); CREATININE - SERUM 1.8 mg/dL (0.6-1.3); POTASSIUM - SERUM 3.3 mmol/L (3.5-5.1); PROTEIN - SERUM 6.7 g/dL (6.4-8.2)
--- NOTE | 2016-12-27 07:10 | NUR ---
BS 67 AT THIS TIME. CL IN REACH. NO DISTRESS NOTED.
--- NOTE | 2016-12-27 07:38 | NUR ---
BS 59.JUICE GIVEN.ALERT ORIENTED. REPOSITIONED FOR COMFORT.
--- NOTE | 2016-12-27 07:45 | NUR ---
DR ALEJANDRA AT BEDSIDE EVALUATING PATIENT. EXISTING DRESSING REMOVED TO LLE AND FOOT VISUALIZED BY DR ALEJANDRA. TREATMENT OPTIONS DISCUSSED WITH PT. WET TO DRY DRESSING APPLIED AND SITE WRAPPED WITH KERLIX AND SECURED WITH METIPORE TAPE. PT TOLERATED WITHOUT COMPLAINTS. OXYGEN WEANED TO 2L VIA NC. WILL CONTINUE WITH PLAN OF CARE.
[2016-12-27 07:59] VITALS: BP 150/63
--- NOTE | 2016-12-27 08:45 | NUR ---
PLACED IN CONTACT ISOLATION D/T POSITIVE BLOOD CULTURES FOR GRAM + COCCI AND PENDING WOUND CULTURES. EXPLAINED ISOLATION PROTOCOLS TO PT AND RN SURGICAL TO WHICH BOTH VERBALIZED UNDERSTANDING.
--- NOTE | 2016-12-27 10:30 | NUR ---
SCHEDULED MEDICATIONS ADMINISTERED AT THIS TIME. MEDICATIONS TAKEN WITHOUT DIFFICULTY. PT REMAINS IN CONTACT ISOLATION. DRESSING TO LLE REMAINS C/D/I. ASSESSMENT PERFMORED PER FLOWSHEET AND PROCEDURE CONSENT AND ANESTHESIA CONSENT FORM SIGNED AND WITNESSED. BS 96 AND LEVEMIR ADMINISTERED PER ORDER. PT DENIES QUESTIONS OR CONCERNS. CALL LIGHT IN REACH, DHIRAJ MAT ALARM IN USE FOR FALL PRECAUTIONS. WILL CONTINUE WITH PLAN OF CARE.
[2016-12-27 12:25] VITALS: BP 184/95
--- NOTE | 2016-12-27 13:10 | NUR ---
SCHEDULED MEDICATIONS ADMINISTERED AT THIS TIME.
--- NOTE | 2016-12-27 13:10 | NUR ---
SCHEDULED MEDICATIONS ADMINISTERED AT THIS TIME. IV TO RIGHT HAND RE-DRESSED D/T BLEEDING AROUND INSERTION SITE D/T PT BUMPING IV ON SR. RIGHT ARM IS WEEPING AT THIS TIME. GOWN AND SHEET CHANGED. DRESSING TO LLE REMAINS C/D/I. ASSISTED PT UP TO BEDSIDE SO THAT HE MAY EAT LUNCH. DENIES NEEDS OR PAIN. CALL LIGHT IN REACH, WILL CONTINUE WITH PLAN OF CARE.
--- NOTE | 2016-12-27 15:30 | NUR ---
ASSISTED PT WITH AMBULATING TO THE BATHROOM TO VOID AT THIS TIME. PT VOIDED WITHOUT DIFFICULTY. LINENS CHANGED. PT ASSISTED BACK TO BED. DRESSING TO LLE REMAINS C/D/I. REMAINS IN CONTACT ISOLATION. IV TO RIGHT HAND C/D/I AND PATENT WITH NO S/S OF INFILTRATION PRESENT. CALL LIGHT IN REACH, DHIRAJ MAT ALARM IN USE FOR FALL PRECAUTIONS. PT DENIES FURTHER NEEDS, WILL CONTINUE WITH PLAN OF CARE.
[2016-12-27 15:38] VITALS: BP 162/90
--- NOTE | 2016-12-27 20:00 | NUR ---
PATIENT SLEEPING SUPINE IN BED WITH NO DISTRESS NOTED. HOB 30 DEGREES. RR EVEN AND UNLABORED, BUT SHALLOW. O2 @ 2L VIA NC. IV TO RIGHT HAND PATENT AND WRAPPED WITH KERLIX. DRESSING TO LLE CDI. TELEMETRY ON. DHIRAJ MAT ON. SRX2. BED LOW. CALL LIGHT WITHIN REACH.
--- NOTE | 2016-12-27 23:55 | NUR ---
PATIENT WAS STILL SLEEPING WITH NO DISTRESS NOTED WHEN I ENTERED ROOM. HE AROUSE TO VOICE AND TOOK MEDICATION WITH NO TROUBLE. HE DENIED PAIN OR NEEDS. HE STOOD AND ATTEMPTED TO URINATE IN URINAL BUT WAS UNABLE. HE SAT ON BED AND BEGAN TO CROUCH OVER. HE SOON BECAME UNRESPONSIVE. HE EXPELLED URINE AND FECES ON SELF AND STOPPED BREATHING. AMA ZAMBRANO CALLED. CPR INITIATED. SEE AMA ZAMBRANO RECORD.
--- NOTE | 2016-12-28 00:15 | NUR ---
FAMILY NOTIFIED OF SITUATION.
--- NOTE | 2016-12-28 00:34 | NUR ---
CODE CALLED. PATIENT PRONOUNCED.
--- NOTE | 2016-12-28 03:45 | NUR ---
PATIENT REMOVED FROM FLOOR.
--- NOTE | 2017-01-30 10:17 | CN ---
PATIENT NAME:ZAN FRENCH MEDICAL RECORD: [id number] : 38 LOCATION:[facility] ADMIT DATE: 12/25/16 ACCOUNT: [id number] CONSULTING PHYSICIAN: IGNACIO WEBER MD REFERRING PHYSICIAN: LEE CASILLAS MD DATE OF CONSULTATION: 12/25/2016 Surgery consultation note addendum CHIEF COMPLAINT: Foot infection. HISTORY OF PRESENT ILLNESS: I have been asked to see the patient again. I have seen the patient in the past. He has a significant kidney disease, hypertension, and myocardial infarction, diabetes and is in very poor health. I see where he has undergone a venous Doppler study as well as a foot x-ray. He has undergone an abdominal CTA on 11/30/2016 and this revealed fairly extensive arteriosclerotic disease involving the branches of the aorta as well as all the visualized lower extremity vessels. The main disease; however is tibia with occlusion of the anterior tibial arteries bilaterally, multifocal occlusions of the peroneal arteries and a short segment occlusion of the left popliteal artery. The left popliteal artery occlusion does appear to be amenable to endovascular repair. The patient then underwent an angioplasty with a drug coated balloon. There was improved single-vessel runoff to the left foot provided by the posterior tibial artery. The patient now has a worsening necrosis of the lateral aspect of the left fifth toe. This is lateral to the left fifth metatarsal head. There is a dry gangrene present as well as a necrotic material underneath this and the surrounding callus formation. The patient also has severe venous stasis insufficiency that is CEAP-6. Palpation aggravates. Nothing alleviates. He has decreased sensation in the feet. I am going to plan for redebridement tomorrow. If arterial inflow is poor, the patient may require another CTA and/or an endovascular intervention to improve blood flow to the left foot. REVIEW OF SYSTEMS: No nausea and no vomiting. No fever, no chills, an no chest pain. Positive for orthopnea and positive for shortness of breath. REVIEW OF SYSTEMS: As described above, otherwise negative. This is a surgery consultation note addendum. For the typed portion of the consult note including past medical and surgical history, allergies, social history as well as current medications, please see the typed portion of the note. PHYSICAL EXAMINATION: GENERAL: The patient does not appear acutely ill. He does appear chronically ill. VITAL SIGNS: Reviewed. HEAD: External ears appear normal. EYES: Extraocular movements are intact. NECK: Trachea is midline. CHEST: No intercostal retractions. PULMONARY: Nonlabored and no stridor. CONSULT REPORT [id number] ZAN FRENCH ABDOMEN: No peritonitis with movement. EXTREMITIES: There is an intertriginous rash. BACK: Mild thoracic kyphosis is present without examination. LYMPHATICS: No lymphangitic streaking of the exposed extremities. INTEGUMENT: He has dry gangrenous changes involving the lateral aspect of the left foot. NEUROLOGIC: Decreased sensation in the left foot. PSYCHIATRIC: Normal affect. IMPRESSION: Progression of the patient's left foot infection with dry gangrene. PLAN: Redebridement in the operating room. Arterial duplex with ABIs. The patient may require a CTA and/or arterial intervention to further improve blood flow to the left foot. TRANSINT:[id number] Voice Confirmation ID: [id number] DOCUMENT ID: [id number] IGNACIO WEBER MD at 1017 CC: BASILIO ALDER MD and LEE CASILLAS MD [id number] DICTATION DATE: 12/25/161934 WELDER/FITTER: 12/25/16 2014 DIS IN 12/28/16 [facility] [address] [place] [address]
--- NOTE | 2017-01-30 10:18 | OP ---
PATIENT NAME: ZAN FRENCH MEDICAL RECORD: [id number] :38 LOCATION:[facility] ADMISSION DATE:12/25/16 SURGEON: IGNACIO WEBER MD DATE OF OPERATION: 12/26/2016 PREOPERATIVE DIAGNOSIS: Recurrent wound, infection and gangrenous, left lateral foot. POSTOPERATIVE DIAGNOSIS: Recurrent wound, infection and gangrenous, left lateral foot with osteomyelitis. PROCEDURE: Excisional debridement of left lateral foot. Dimensions of debridement, including margins, measured 4.0 in the anterior/posterior dimension and then 2.5 cm in cephalad caudad dimension. The debridement included skin and subcutaneous tissue with eschar above the bone of the proximal phalanx of the fifth toe as well as at the metatarsophalangeal joint and a portion of the distal aspect of the fifth metatarsal. Osteomyelitis is present. Also, necrotic tendinous material and fascia was excised as well as necrotic ligamentous material. This was dry gangrene. SURGEON: Ignacio Weber MD CORK PAINTER AND GRADER: None. BLOOD LOSS: Minimal. ANESTHESIA: General. COMPLICATIONS: None. The risks, possible complications and alternatives to procedure were explained to the patient. He elects to proceed. OPERATIVE COURSE: The patient was conveyed to the operating room electively on 12/26/2016. General anesthesia was induced by the anesthesia staff. The left lower extremity was sterilely prepped and draped. The debridement was carried out with a rongeur as well as scalpel and the electrocautery. The debrided tissues are listed above. I debrided back to viable bleeding tissue. This was a sharp debridement. A sterile wet-to-dry dressing was applied. The patient is going to require an amputation of the left fifth toe. It is partially devascularized now after the debridement. He is also going to require resection of a portion of metatarsal head. I will consult Dr. Silva for this amputation. TRANSINT:[id number] Voice Confirmation ID: [id number] DOCUMENT ID: [id number] OPERATIVE REPORT [id number] ZAN FRENCH ROBERT MD at 1018 CC: FAUSTO SILVA MD and LEE CASILLAS MD [id number] DICTATION DATE: 12/26/16 1658 MANAGER CONSUMER INSIGHTS: 12/26/162042 DIS IN 12/28/16 [facility] [address] [place] [address]
--- NOTE | 2017-02-25 15:15 | DS ---
PATIENT:ZAN FRENCH :38 MEDICAL RECORD: [id number] DISCHARGE SUMMARY ADMISSION DATE: 12/25/16 DISCHARGE DATE: 12/28/16 Summary DATE OF ADMISSION: 12/25/2016 DATE OF DISCHARGE: 12/28/2016 DISCHARGE DIAGNOSES: 1. Left foot infection with dry gangrene. 2. Atrial fibrillation with rapid ventricular response. 3. Diabetes mellitus. 4. Hyperlipidemia. 5. Chronic kidney disease, stage III. 6. Coronary artery disease. 7. Chronic obstructive pulmonary disease. 8. Joycelyn dysfunction post-pacemaker placement. 9. Neuropathy. 10. Osteomyelitis. CONSULTS: Bill Still MD PROCEDURE OR STUDIES: 1. Debridement of the left lateral foot. 2. Arterial Doppler, which shows severe bilateral lower extremity peripheral vascular disease. 3. Ultrasound of the right lower extremity and it is negative for DVT. 4. Foot x-ray on the left, which shows soft tissue swelling and degenerative changes. 5. Venous Doppler on the left which shows no evidence of DVT. 6. Ultrasound, arterial, which shows severe bilateral lower extremity peripheral vascular disease. HOSPITAL COURSE: This is a 76-year-old male patient with multiple comorbid conditions, who were admitted to the Emergency Department with lower extremity edema and redness. The patient was admitted into the inpatient setting and was started on IV antibiotics including Teflaro. The wound cultures were positive for Gram-negative rods. A surgical consult was obtained and he underwent debridement of some dry gangrene on the left foot. The patient also had a noted osteomyelitis, which required amputation of the fifth toe and resection of the lateral fifth distal metatarsal. The patient did require several electrolyte replacements during this hospitalization. His pain was controlled and he tolerated the operative procedures. On 12/28/2016, the patient suffered a cardiac arrest. Despite aggressive heroic measures, he was not able to be successfully resuscitated. The time of was midnight ____ on 12/28/2015. TRANSINT:[id number] Voice Confirmation ID: [id number] DOCUMENT ID: [id number] Dictated By: STEVE BUTT I have interviewed/examined the above patient and agree with these documented DISCHARGE SUMMARY REPORT [id number] ZAN FRENCH findings. LEE CASILLAS MD at 1515 at 0811 CC: [id number] DICTATION DATE: 02/21/17 0857 FINE GRADE OPERATOR: 02/22/17 0012 DIS IN 12/28/16 [facility] [address] [place] [address]
== END 2016-12-28 04:00 | DRG 987 ==
LOC: D.ER 07:45 → D.MS 10:47
PROVIDERS: Emergency Medicine; Surgery; ADMIT Family Medicine
PROC: 0QBP0ZZ Excision of Left Metatarsal, Open Approach (ICD-10-PCS; principal; 2016-12-26 12:15)
PROC: 0BH17EZ Insertion of Endotracheal Airway into Trachea, Via Natural or Artificial Opening (ICD-10-PCS; 2016-12-28)
DX: E11.52 Type 2 diabetes mellitus with diabetic peripheral angiopathy with gangrene (principal); G93.41 Metabolic encephalopathy; L03.116 Cellulitis of left lower limb; M86.9 Osteomyelitis, unspecified; E11.621 Type 2 diabetes mellitus with foot ulcer; E11.22 Type 2 diabetes mellitus with diabetic chronic kidney disease; L97.529 Non-pressure chronic ulcer of other part of left foot with unspecified severity; I12.9 Hypertensive chronic kidney disease with stage 1 through stage 4 chronic kidney disease, or unspecified chronic kidney disease; N18.3 Chronic kidney disease, stage 3 (moderate); Z79.4 Long term (current) use of insulin; J45.909 Unspecified asthma, uncomplicated; I48.91 Unspecified atrial fibrillation; Z79.01 Long term (current) use of anticoagulants; J44.9 Chronic obstructive pulmonary disease, unspecified; I25.2 Old myocardial infarction